=== PATIENT | male | born 1960 | race Caucasian/White ===

== ENCOUNTER 2019-12-07 09:16 | Outpatient (CLI) | payer OTHER, SELFPAY ==
--- NOTE | ~2019-12-07 | XR_ITS ---
EXAMINATION: XR foot RT standing 2V INDICATION: Right foot pain TECHNIQUE: Two views of the right foot are obtained. COMPARISON: None available FINDINGS: No acute fracture is identified. There is moderate osteoarthritis at the first metatarsopha langeal joint. Mild osteoarthritis is noted in multiple interphalangeal joints. IMPRESSION: 1. No acute osseous abnormality on this limited two view examination. Reviewed, dictated and finalized at location A.
== END 2019-12-07 09:17 | disposition home or self-care (01) ==
LOC: CHSIMG 09:18
PROVIDERS: PCP Family Medicine; Visit Provider Family Medicine
DX: S99.919A Unspecified injury of unspecified ankle, initial encounter (principal)
CPT/HCPCS: 73620

== ENCOUNTER 2020-03-27 10:49 | Emergency (ER) | payer OTHER, SELFPAY ==
--- NOTE | ~2020-03-27 | CT_ITS ---
EXAMINATION: CT facial bones w con DATE: 03/27/2020 12:03 INDICATION: Left ear and face swelling TECHNIQUE: Computed tomography (CT) of the facial bones was performed with 100 cc Omnipaque 350 intra venous contrast. The dose-length product was 314.22 mGy-cm. COMPARISON: None FINDINGS: No intracranial abnormality identified. There is mild fatty infiltration of the subcutaneou s tissues of the left temporal/facial and periauricular soft tissues, consistent with cellulitis. No discrete abscess is identified. Mildly prominent left cervical lymph nodes, likely reactive. Small le ft mastoid effusion. Mild mucosal thickening of the left maxillary and ethmoid sinuses. There is mild cervical spondylosis with dextrocurvature of the cervical spine. IMPRESSION: 1. Mild left facial and periauricular subcutaneous fatty infiltration, consistent with cellulitis. No discrete abscess. 2: Small left mastoid effusion. Reviewed, dictated and finalized at location A. TIC SHEETS FINISHING SUPERVISOR IMPRESSION: 1. Mild left facial and periauricular subcutaneous fatty infiltration, consiste nt with cellulitis. No discrete abscess. 2: Small left mastoid effusion.
[2020-03-27 11:21] VITALS: BP 174/109; PULSE 114; RESP 18; TEMP 37.7; O2SAT 98
[2020-03-27 11:35] LABS: Basophils Absolute Auto 0.03 K/mm3 (0.00-0.10); Basophils Percent Auto 0.2 % (0.0-1.0); Eosinophils Absolute Auto 0.02 K/mm3 (0.02-0.50); Eosinophils Percent Auto 0.1 % (1.0-6.0); Hematocrit 45.5 % (40.0-54.0); Hemoglobin 15.2 g/dL (14.0-18.0); Immature Granulocyte Absolute 0.07 K/mm3 (0.00-0.00); Immature Granulocyte Percent A 0.4 % (0.0-0.0); Lymphocytes Absolute Auto 1.19 K/mm3 (1.10-4.50); Lymphocytes Percent Auto 7.5 % (18.0-42.0); Mean Corpuscular HGB Conc 33.4 g/dL (32.0-36.0); Mean Corpuscular Hemoglobin 31.4 pg (27.0-31.0); Mean Platelet Volume 9.6 fl (8.7-11.0); Monocytes Absolute Auto 1.01 K/mm3 (0.10-0.90); Monocytes Percent Auto 6.4 % (2.0-11.0); Neutrophils Absolute Auto 13.5 K/mm3 (1.7-7.2); Neutrophils Percent Auto 85.4 % (50.0-70.0); Platelet Count Result 219 K/mm3 (150-420); Red Blood Count 4.84 M/mm3 (4.70-6.10); Red Cell Distribution Width 12.6 % (11.6-14.4); White Blood Count 15.8 K/mm3 (4.8-10.8)
[2020-03-27] MEDS: KETOROLAC 30 MG/ML VIAL (*BKC) IV PUSH (11:41)
[2020-03-27 11:46] LABS: Anion Gap 11 mmol/L (8-16); Blood Urea Nitrogen 21 mg/dL (7-18); Carbon Dioxide 25 mmol/L (21-32); Chloride 102 mmol/L (98-108); Potassium 4.1 mmol/L (3.5-5.1); Sodium 138 mmol/L (136-145)
[2020-03-27 11:47] LABS: CRP 17.4 mg/dL (0.0-0.9); Estimated CRCL calculation 70 ml/min; Estimated Glomerular Filt Rate > 60; Glucose 109 mg/dL (70-99); Osmolality Calculated 290 mOsm/kg (285-295)
--- NOTE | 2020-03-27 11:53 | ED.EAR ---
HPI - Ear Problem General Chief complaint: Ear Stated complaint: 60YO male w/ 3 month h.o recurrent ear infections (middle and outer) ears. Has been seeing Dr Epstein who has given him multiple rounds of PO ABX. patient was doing ok but on saturday (3 days ago) started having Left ear and face swelling. Patient admits to using ear drops since saturday w/ no improvement. Here for evaluation. Related Data Allergies Allergy/AdvReac Type Severity Reaction Status Date / Time tetracycline Allergy Intermediate Rash Verified 03/08/20 12:05 Review of Systems Review of Systems: All systems reviewed & are unremarkable except as noted in HPI and below Constitutional: Constitutional: Reports no additional constitutional complaints Eyes: Eyes: Reports no additional eye complaints ENT: Reports system reviewed and no additional complaints, except as documented Comments: Left Face and Ear swelling Cardiovascular: Cardiovascular: Reports no additional cardiovascular complaints Respiratory: Respiratory: Reports no additional respiratory complaints Gastrointestinal: Gastrointestinal: Reports no additional gastrointestinal complaints Musculoskeletal: Musculoskeletal: Reports no additional musculoskeletal complaints Integumentary/Breasts: Comments: Left Earlobe and facial Swelling Neurologic: Reports system reviewed and no additional complaints, except as documented Psychiatric: Psychiatric: Reports no additional psychiatric complaints Endocrine: Endocrine: Reports no additional endocrine complaints Hematologic/Lymphatic: Hematologic/Lymphatic: Reports no additional hematologic/lymphatic complaints Allergic/Immunologic: Allergic/Immunologic: Reports no additional allergic/immunologic complaints [facility] Past Medical History Medical History Abnormal vision Anxiety Arthritis COPD (chronic obstructive pulmonary disease) Depression Headache Hypertension Insomnia Nicotine dependence Obesity, Class I, BMI 30-34.9 Osteoarthritis of right patellofemoral joint Otitis externa Stomach pain Urinary frequency Surgical History Surgical History History of back surgery History of knee surgery Left History of right knee surgery 3 past SX datin, 2004, 2004 History of shoulder surgery Family History Family History Mother Acute myocardial infarction Father Hypertension Diabetes mellitus Malignant neoplasm of prostate Other Arthritis Family history of cardiovascular disease Heart disease Social History Social History Smoking packs per day: 1 Smoking cigarettes per day: 20.0 Years smoked: 30 Smoking pack-years: 30.00 Smoking status: Current every day smoker Tobacco type: cigarettes Alcohol intake: current Substance use: never Substance use type: does not use Additional living arrangements comments: 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 Left Auditory canal inspected but TM not visualized sec to earwax. Eyes: Conjunctivae: conjunctivae normal Pupils: Equal, round and reactive pupils present EOM: EOMs intact bilaterally Neck: Neck: normal visual inspection and no lymphadenopathy Chest: Chest palpation & inspection: normal inspection of the chest Resp: Effort & Inspection: no
[2020-03-27 12:10] VITALS: BP 161/96; PULSE 100
[2020-03-27 13:02] LABS: Lactic Acid Reflex 0.8 mmol/L (0.4-2.0)
[2020-03-27 13:30] VITALS: RESP 16; O2SAT 99
== END 2020-03-27 13:39 | disposition home or self-care (01) ==
PROVIDERS: Emergency Provider Family Medicine; PCP Family Medicine
DX: H60.92 Unspecified otitis externa, left ear (principal); L03.211 Cellulitis of face
CPT/HCPCS: 36415; 70487; 80048; 83605; 85025; 86140; 96365; 96375; 99283; 99284; J1885; J2543; Q9965

== ENCOUNTER 2020-04-01 13:27 | Outpatient (CLI) | payer OTHER, SELFPAY ==
--- NOTE | 2020-04-01 13:30 | ECG_ITS ---
Measurements Intervals [place] Rate: 67 P: 119 AL: 123 QRS: 76 QRSD: 86 T: 20 QT: 419 QTc: 443 Interpretive Statements SINUS RHYTHM BORDERLINE ST-T WAVE ABNORMALITY- INFERIOR LEADS BASELINE ARTIFACT- I, II, AVR, AVL, AVF BORDERLINE ECG Electronically Signed On 04-01-2020 13:47:01 WELDING TEACHER by Jaspreet Smyth D.O.
== END 2020-04-01 13:28 | disposition home or self-care (01) ==
LOC: ANHSURGERY 13:30
PROVIDERS: PCP Family Medicine; Visit Provider Surgery
DX: Z01.818 Encounter for other preprocedural examination (principal); I10 Essential (primary) hypertension
CPT/HCPCS: 93005

== ENCOUNTER 2020-04-04 02:24 | Outpatient (CLI) | payer OTHER, SELFPAY ==
[2020-04-04 18:35] LABS: SARS-CoV-2 RNA PCR Negative
== END 2020-04-04 02:25 | disposition home or self-care (01) ==
LOC: ANHCOVIDDT 02:24
PROVIDERS: PCP Family Medicine; Visit Provider Surgery
DX: Z01.812 Encounter for preprocedural laboratory examination (principal); Z20.828 Contact with and (suspected) exposure to other viral communicable diseases
CPT/HCPCS: 87635; C9803; U0003

== ENCOUNTER 2020-04-07 00:39 | Day surgery (SDC) | payer OTHER, SELFPAY ==
[2020-03-31 10:23] VITALS: BMI 28.1
--- NOTE | 2020-04-06 19:28 | PM.SD ---
Same Day Admit/Disch: HPI History of Present Illness Chief complaint: Left Sided HeadacheLeft Temporal Tenderness Narrative: Perez Kothari is a 60 year old male with history of multiple ear infections developed left facial and ear swelling and pain with headache. He went to ED 03/27 and was felt to have cellulitis. His CRP was elevated. 2 days later he saw his PCP who noted tenderness over the left temporal artery with headache and some visual changes. He was started on steroids and is now taken to surgery for left temporal artery biopsy. [facility] Past Medical History Medical History Abnormal vision Anxiety Arthritis COPD (chronic obstructive pulmonary disease) Depression Headache Hypertension Insomnia Nicotine dependence Obesity, Class I, BMI 30-34.9 Osteoarthritis of right patellofemoral joint Otitis externa Stomach pain Urinary frequency Surgical History Surgical History History of back surgery History of knee surgery Left History of right knee surgery 3 past SX datin, 2004, 2004 History of shoulder surgery Family History Family History Mother Acute myocardial infarction Father Hypertension Diabetes mellitus Malignant neoplasm of prostate Other Arthritis Family history of cardiovascular disease Heart disease Social History Social History Smoking packs per day: 1 Smoking cigarettes per day: 20.0 Years smoked: 35 Smoking pack-years: 35.00 Smoking status: Current every day smoker Tobacco type: cigarettes Alcohol intake: current Substance use: never Substance use type: does not use Living arrangements: with family Additional living arrangements comments: 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 [employer] Gender identity (if verbalized by the patient): Male Spiritual care concerns: No Same Day Admit/Disch: Med Pre-admit Medications Home Medications Medication Instructions Recorded Confirmed Type albuterol sulfate 90 mcg/actuation 2 puff INHALATION Q6H PRN #18 gm 11/02/19 04/07/20 Rx aerosol inhaler aspirin 81 mg tablet,delayed 81 mg PO DAILY #90 tablet 11/02/19 04/07/20 Rx release meclizine 25 mg tablet See Rx Instructions .ROUTE 03/04/20 04/07/20 Rx .COMPLEX #30 tablet buspirone 10 mg tablet 10 mg PO BID PRN #60 tablet 03/08/20 04/07/20 Rx fluoxetine 40 mg capsule 40 mg PO DAILY #90 cap 03/08/20 04/07/20 Rx lisinopril 20 1 tablet PO DAILY #90 tablet 03/10/20 04/07/20 Rx mg-hydrochlorothiazide 12.5 mg tablet cefuroxime axetil 500 mg PO Q12H #28 tablet 03/27/20 04/07/20 Rx sulfamethoxazole-trimethoprim 1 tablet PO Q12H #20 tablet 03/27/20 04/07/20 Rx [Bactrim DS] prednisone 50 mg tablet 50 mg PO DAILY #14 tablet 03/29/20 04/07/20 Rx amlodipine 10 mg PO QAM 03/31/20 04/07/20 History budesonide-formoterol [Symbicort] 2 puff INHALATION PRN PRN 03/31/20 04/07/20 History ciprofloxacin-dexamethasone 4 drp LEFTEAR Q12H 03/31/20 04/07/20 History [Ciprodex] gabapentin 300 mg PO PRN PRN 03/31/20 04/07/20 History zolpidem 10 mg tablet 10 mg PO PRN PRN #10 tablet 03/31/20 04/07/20 Rx hydrocodone-acetaminophen 1 - 2 tablet PO Q6H PRN #7 tablet 04/07/20 Rx Exam Const: General: comfortable, no acute distress, alert and awake HENMT: Head: normocephalic and atraumatic Mouth: Yes Normal oral and palatal mucosa present Eyes: Conjunctivae: conjunctivae normal Pupils: Equal, round and reactive pupils present EOM: EOMs intact bilaterally Neck: Neck: normal visual inspection, no lymphadenopathy and nontender Resp: Effort & Inspection: normal respiratory effort Auscultation: clear to auscultation bilaterally Cardio: Rate: regular rate Rhythm: regular rhythm Heart sounds: no gallops, no murmur
--- NOTE | 2020-04-07 08:14 | WPDHPUPDATE1 ---
History and Physical Update Update Date/Time: 04/07/20 08:14 History and Physical has been reviewed, including an updated exam of the patient. There are NO changes in the patient's condition. Risks, benefits, and alternatives have been discussed and questions answered. Patient agrees to proceed with procedure.
[2020-04-07 08:27] VITALS: BP 129/66; PULSE 66; RESP 16; TEMP 36.4; O2SAT 100; BMI 27.1
[2020-04-07] MEDS: LACTATED RINGERS 1,000 ML 30 ML IV CONT ×2 (09:26→11:09)
--- NOTE | 2020-04-07 09:57 | WPDANESEPPF ---
Anes - Initial Pre Proc Eval Procedure: Operation Date: 04/07/20 10:30 Proposed Procedures p Left Temporal Artery Biopsy - Hugo Samuel MD Date/Time: 04/07/20 09:57 Surgeon: Hugo Samuel MD Pre Op Diagnosis: Left Sided HeadacheLeft Temporal Tenderness Patient Data Age: 60 Gender: M Height: 6 ft 1 in Weight: 93.4 kg Last Vital Signs Temp 36.4 C L 04/07/20 08:27 Pulse 66 04/07/20 08:27 Resp 16 04/07/20 08:27 BP 129/66 04/07/20 08:27 Pulse Ox 100 04/07/20 08:27 Allergies Allergy/AdvReac Type Severity Reaction Status Date / Time tetracycline Allergy Intermediate Rash Verified 04/07/20 09:14 Home Medications Medication Instructions Recorded Confirmed Type albuterol sulfate 90 mcg/actuation 2 puff INHALATION Q6H PRN #18 gm 11/02/19 04/07/20 Rx aerosol inhaler aspirin 81 mg tablet,delayed 81 mg PO DAILY #90 tablet 11/02/19 04/07/20 Rx release meclizine 25 mg tablet See Rx Instructions .ROUTE 03/04/20 04/07/20 Rx .COMPLEX #30 tablet buspirone 10 mg tablet 10 mg PO BID PRN #60 tablet 03/08/20 04/07/20 Rx fluoxetine 40 mg capsule 40 mg PO DAILY #90 cap 03/08/20 04/07/20 Rx lisinopril 20 1 tablet PO DAILY #90 tablet 03/10/20 04/07/20 Rx mg-hydrochlorothiazide 12.5 mg tablet cefuroxime axetil 500 mg PO Q12H #28 tablet 03/27/20 04/07/20 Rx sulfamethoxazole-trimethoprim 1 tablet PO Q12H #20 tablet 03/27/20 04/07/20 Rx [Bactrim DS] prednisone 50 mg tablet 50 mg PO DAILY #14 tablet 03/29/20 04/07/20 Rx amlodipine 10 mg PO QAM 03/31/20 04/07/20 History budesonide-formoterol [Symbicort] 2 puff INHALATION PRN PRN 03/31/20 04/07/20 History ciprofloxacin-dexamethasone 4 drp LEFTEAR Q12H 03/31/20 04/07/20 History [Ciprodex] gabapentin 300 mg PO PRN PRN 03/31/20 04/07/20 History zolpidem 10 mg tablet 10 mg PO PRN PRN #10 tablet 03/31/20 04/07/20 Rx Patient hx anesthesia problems: none Family hx anesthesia problems: none PMFSH Past Medical History Medical History Abnormal vision Anxiety Arthritis COPD (chronic obstructive pulmonary disease) Depression Headache Hypertension Insomnia Nicotine dependence Obesity, Class I, BMI 30-34.9 Osteoarthritis of right patellofemoral joint Otitis externa Stomach pain Urinary frequency Surgical History Surgical History History of back surgery History of knee surgery Left History of right knee surgery 3 past SX datin, 2004, 2004 History of shoulder surgery Family History Family History Mother Acute myocardial infarction Father Hypertension Diabetes mellitus Malignant neoplasm of prostate Other Arthritis Family history of cardiovascular disease Heart disease Social History Social History Smoking packs per day: 1 Smoking cigarettes per day: 20.0 Years smoked: 35 Smoking pack-years: 35.00 Smoking status: Current every day smoker Tobacco type: cigarettes Alcohol intake: current Substance use: never Substance use type: does not use Living arrangements: with family Additional living arrangements comments: 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 Question
[2020-04-07] MEDS: ceFAZolin 2 GM/D5W 50 ML 2 GM/50 ML BAG IVPB (10:09)
[2020-04-07] MEDS: BUPIVACAINE/EPINEPHRINE 0.25% 50 ML VIAL 8 ML INFILTRATE (10:29)
[2020-04-07 11:09] VITALS: BP 103/63; PULSE 74; RESP 16
[2020-04-07 11:35] VITALS: BP 137/88; PULSE 61; RESP 16
--- NOTE | 2020-04-07 14:26 | PM.PROC ---
Procedure Note - Detailed Date of procedure: 04/07/20 Pre-op diagnosis: Left Sided HeadacheLeft Temporal Tenderness Left temporal headache Post-op diagnosis: same Procedure performed: Left temporal artery biopsy Description of procedure: The patient was taken to surgery and placed in a supine position with the head turned to the right. Prep and drape was carried out. The proposed incision was marked on the pre-auricular skin. Local anesthetic was infiltrated into the skin and subcutaneous tissues. Incision was made and deepened down into the subcutaneous. Sterile Doppler was then brought into the field so that we could direct our dissection onto the temporal artery. There is a substantial subcutaneous vein associated. This was dissected out and doubly clamped and divided. Each end was ligated with 3 0 Vicryl ties. The temporal artery was then more easily visualized. A 2 cm segment of temporal artery was dissected free from the associated subcutaneous. Each end was clamped and divided. The specimen sent to pathology in formalin. The 2 ends were ligated with 3 0 Vicryl ties. The wound was checked and hemostasis was good. The wound was closed in layers with a deep layer of interrupted 3 0 Vicryl suture. Subcuticular 4 O Vicryl interrupted skin stitches were placed. Finally a running 4 0 Monocryl subcuticular skin closure was placed. The wound was dressed with Exofin surgical adhesive. The patient was awakened and taken to recovery in good condition. Anesthesia: MAC and local (0.25% Marcaine with epinephrine) Surgeon: Hugo Samuel MD Human Resources Operations Director: Evangelina WELDON Estimated blood loss (mL): 50 Drains: No Packing: No Pathology: yes (Left temporal artery) Complications: None Condition: stable Disposition: same day Findings: None significant
== END 2020-04-07 12:07 | disposition home or self-care (01) ==
PROVIDERS: PCP Family Medicine; Visit Provider Surgery
PROC: (CPT 37609; principal; 2020-04-07 10:30)
DX: I77.89 Other specified disorders of arteries and arterioles (principal); R51.9 Headache, unspecified; H53.8 Other visual disturbances; J44.9 Chronic obstructive pulmonary disease, unspecified; F32.9 Major depressive disorder, single episode, unspecified; I10 Essential (primary) hypertension; G47.00 Insomnia, unspecified; M17.11 Unilateral primary osteoarthritis, right knee; H60.90 Unspecified otitis externa, unspecified ear; R35.0 Frequency of micturition; E66.9 Obesity, unspecified; Z68.27 Body mass index [BMI] 27.0-27.9, adult; F17.210 Nicotine dependence, cigarettes, uncomplicated; Z79.82 Long term (current) use of aspirin; Z79.51 Long term (current) use of inhaled steroids
CPT/HCPCS: 37609; 87635; 88305; 88313; 93005; A9270; C9803; J0690; J2250; J2704; J3010; J7120; U0003

== ENCOUNTER 2021-04-03 16:40 | Outpatient (CLI) | payer SELFPAY ==
[2021-04-03 18:15] LABS: SARS-CoV-2 RNA PCR Negative (Negative)
== END 2021-04-03 16:41 | disposition home or self-care (01) ==
LOC: CHSLAB 16:44
PROVIDERS: PCP Family Medicine; Visit Provider Family Medicine
DX: Z20.822 Contact with and (suspected) exposure to COVID-19 (principal)
CPT/HCPCS: C9803; U0003; U0005

== ENCOUNTER 2021-04-10 09:36 | Outpatient (CLI) | payer OTHER, SELFPAY ==
[2021-04-10 10:25] LABS: SARS-CoV-2 RNA PCR Positive (Negative)
== END 2021-04-10 09:37 | disposition home or self-care (01) ==
LOC: CHSLAB 09:39
PROVIDERS: PCP Family Medicine; Visit Provider Family Medicine
DX: U07.1 COVID-19 (principal)
CPT/HCPCS: C9803; U0003; U0005

== ENCOUNTER 2021-06-09 14:24 | Outpatient (CLI) | payer OTHER, SELFPAY ==
--- NOTE | ~2021-06-09 | XR_ITS ---
XR knee RT 3V DATE: 06/09/2021 14:57 INDICATION: Right anterior knee pain following a fall 3 days ago. History of 2 prior surgeries. TECHNIQUE: [place], AP and lateral views of right knee COMPARISON: 05/06/2019 right knee FINDINGS: There are 2 threaded transverse fixation devices at the proximal tibia with evidence of old healed tibial metaphyseal probable fracture deformity. Diffuse osteopenia. There is periarticular spurring of the patella. Medial and lateral compartment joint spaces are relat ively preserved. No recent fracture, dislocation or joint effusion. No periosteal reaction or bone destruction. IMPRESSION: Postoperative change of the tibia, probable old healed tibial metaphyseal fracture Osteopenia Patellofemoral osteoarthritis Reviewed, dictated and finalized at location B. EMIC AFFAIRS DIRECTOR IMPRESSION: Postoperative change of the tibia, probable old healed tibial metap hyseal fracture Osteopenia Patellofemoral osteoarthritis
== END 2021-06-09 14:25 | disposition home or self-care (01) ==
LOC: CHSIMG 14:27
PROVIDERS: PCP Family Medicine; Visit Provider Nurse Practitioner Family
DX: M25.561 Pain in right knee (principal)
CPT/HCPCS: 73562

== ENCOUNTER 2021-06-24 06:43 | Outpatient (CLI) | payer OTHER, SELFPAY ==
--- NOTE | ~2021-06-24 | MR_ITS ---
EXAMINATION: MR knee RT wo con DATE: 06/24/2021 08:38 INDICATION: Right knee pain. TECHNIQUE: Magnetic resonance imaging (MRI) of the right knee was performed without intravenous contr ast. Sequences included axial PD-weighted FS FSE, coronal PD-weighted FSE and PD-weighted FS FSE, sag ittal PD-weighted FSE, and sagittal T2-weighted FS FSE. COMPARISON: Right knee radiographs 06/09/2021 FINDINGS: Medial compartment: Medial meniscus is normal. There is cartilage surface irregularity of tibial condyle and femoral cond yle. Tiny osteophytes are noted. Lateral compartment: There is an undersurface horizontal tear of anterior horn of lateral meniscus. There is cartilage karen face irregularity of tibial condyle and femoral condyle. Patellofemoral compartment: There is deep partial thickness cartilage loss of patellar medial and lateral facets and median ridge . There is partial-thickness cartilage loss of trochlea, deep at medial trochlea. Ligaments and tendons: The anterior and posterior cruciate ligaments are normal. Medial collateral ligament and lateral uday ateral ligament complex are normal. The patellar tendon is normal. Fluid: There is a small knee joint effusion. There is a small Lara's cyst. Osseous/other: There is a 10 mm lesion of increased T2-weighted signal intensity in distal femur, likely an enchondr sadia. There is artifact from screw fragments in tibial metaphysis. IMPRESSION: 1. Moderate chondrosis of patellofemoral compartment and mild chondrosis of medial and lateral compar tments. 2. Tear of lateral meniscus. 3. Small knee joint effusion. 4. Small Lara's cyst. Reviewed, dictated and finalized at location A. AGING MACHINE OPERATOR IMPRESSION: 1. Moderate chondrosis of patellofemoral compartment and mild chondrosis of med ial and lateral compartments. 2. Tear of lateral meniscus. 3. Small knee joint effusion. 4. Small Lara's cyst.
== END 2021-06-24 06:44 | disposition home or self-care (01) ==
LOC: CHSIMG 06:44
PROVIDERS: PCP Family Medicine; Visit Provider Nurse Practitioner Family
DX: M25.561 Pain in right knee (principal)
CPT/HCPCS: 73721

== ENCOUNTER 2021-07-22 07:40 | Outpatient (CLI) | payer OTHER, SELFPAY ==
[2021-07-22 07:53] LABS: Basophils Absolute Auto 0.06 K/mm3 (0.00-0.10); Basophils Percent Auto 0.5 % (0.0-1.0); Eosinophils Absolute Auto 0.22 K/mm3 (0.02-0.50); Eosinophils Percent Auto 1.8 % (1.0-6.0); Hemoglobin 15.6 g/dL (14.0-18.0); Immature Granulocyte Absolute 0.03 K/mm3 (0.00-0.00); Immature Granulocyte Percent A 0.3 % (0.0-0.0); Lymphocytes Absolute Auto 4.12 K/mm3 (1.10-4.50); Lymphocytes Percent Auto 34.4 % (18.0-42.0); Mean Corpuscular HGB Conc 33.2 g/dL (32.0-36.0); Mean Corpuscular Hemoglobin 31.6 pg (27.0-31.0); Mean Corpuscular Volume 95.1 fL (78.0-102.0); Mean Platelet Volume 9.3 fl (8.7-11.0); Monocytes Absolute Auto 0.68 K/mm3 (0.10-0.90); Monocytes Percent Auto 5.7 % (2.0-11.0); Neutrophils Absolute Auto 6.9 K/mm3 (1.7-7.2); Neutrophils Percent Auto 57.3 % (50.0-70.0); Platelet Count Result 257 K/mm3 (150-420); Red Blood Count 4.94 M/mm3 (4.70-6.10); Red Cell Distribution Width 12.7 % (11.6-14.4)
[2021-07-22 08:29] LABS: Alanine Aminotransferase 26 U/L (16-63); Alkaline Phosphatase 62 U/L (46-116); Anion Gap 5 mmol/L (8-16); Aspartate Amino Transferase 18 U/L (15-37); Bilirubin,Total 0.5 mg/dL (0.00-1.00); Blood Urea Nitrogen 17 mg/dL (7-18); Calcium 9.4 mg/dL (8.5-10.1); Carbon Dioxide 31 mmol/L (21-32); Chloride 103 mmol/L (98-108); Cholesterol 238 mg/dL (0-200); Estimated Glomerular Filt Rate > 60; Glucose 92 mg/dL (70-99); HDL Direct 46 mg/dL (40-60); LDL Cholesterol Calculated 175 mg/dL (<130); Osmolality Calculated 289 mOsm/kg (285-295); Potassium 4.4 mmol/L (3.5-5.1); Sodium 139 mmol/L (136-145); Triglycerides 83 mg/dL (0-150)
== END 2021-07-22 07:41 | disposition home or self-care (01) ==
LOC: CHSLAB 07:42
PROVIDERS: PCP Family Medicine; Visit Provider Nurse Practitioner Family
DX: Z01.818 Encounter for other preprocedural examination (principal); I10 Essential (primary) hypertension
CPT/HCPCS: 36415; 80053; 80061; 85025

== ENCOUNTER 2021-08-04 10:21 | Outpatient (CLI) | payer OTHER, SELFPAY ==
--- NOTE | 2021-08-04 10:56 | ECG_ITS ---
Measurements Intervals [place] Rate: 68 P: 69 CO: 139 QRS: 62 QRSD: 98 T: 6 QT: 402 QTc: 429 Interpretive Statements SINUS RHYTHM NONSPECIFIC T-WAVE ABNORMALITY ABNORMAL ECG Electronically Signed On 08-04-2021 15:49:51 CDT by Geraldo Ramirez M.D.
== END 2021-08-04 10:22 | disposition home or self-care (01) ==
LOC: ANHSURGERY 10:25
PROVIDERS: PCP Family Medicine; Visit Provider Orthopaedic Surgery
DX: Z01.810 Encounter for preprocedural cardiovascular examination (principal); S83.289A Other tear of lateral meniscus, current injury, unspecified knee, initial encounter; R94.31 Abnormal electrocardiogram [ECG] [EKG]
CPT/HCPCS: 93005

== ENCOUNTER → 2021-08-05 00:19 | Outpatient (CLI) | payer OTHER, SELFPAY ==
[2021-08-05 11:14] LABS: SARS-CoV-2 RNA PCR Negative
== END ==
PROVIDERS: PCP Family Medicine; Visit Provider Orthopaedic Surgery
DX: Z01.812 Encounter for preprocedural laboratory examination (principal); Z20.822 Contact with and (suspected) exposure to COVID-19
CPT/HCPCS: C9803; U0003; U0005

== ENCOUNTER 2021-08-08 00:10 | Day surgery (SDC) | payer OTHER, SELFPAY ==
--- NOTE | 2021-08-02 14:55 | SUR.PREOP ---
Report to the Outpatient Waiting Room, entrance under the green pavilion located off [facility], at time 1230 on date 08/08/21. OR Time: 1430. - You and your visitor will be asked a series of questions to screen for COVID 19 for your protection. - A mask is required within the hospital. Preoperative COVID Testing Requirements: No COVID Test needed if: (proof is required; if not received patient will have Rapid Test prior to entry) - Patient has received COVID Vaccine at least 14 days prior to procedure date or - Patient has positive COVID test result within last 90 days of surgery date. COVID Test needed if above criteria is not met If not COVID vaccinated a COVID test must be conducted within 72 hours of surgery and patient is asked to isolate self from time of testing until procedure. You will go to the [facility] for your COVID testing. The [facility] is located at the corner of [address] [facility]. You will only be called if COVID results are positive and your surgeon may reschedule your elective surgery date. Patients may have clear liquids (water, carbonated beverages, clear teas, apple juice) until 3 hours prior to surgery with a maximum of 20 ounces. - NO CLEAR LIQUIDS AFTER 1130 - No food from midnight until time of surgery - Infants may have breast milk until 4 hours before surgery, infant formula 6 hours prior to surgery. - Children will be allowed to drink immediately following surgery. If applicable, please bring a bottle or sippy cup to assist with drinking. Juice, water, soda, and popsicles are readily available. For infants on formula, please bring formula the day of surgery. Pacifiers are allowed. Take the following medications with a SIP of water the morning of surgery: CODEINE/ACETAMINOPHEN, CEPHALEXIN, BRING ALBUTEROL INHALER Medications to discontinue per physician ASPIRIN Date to take last dose STOPPED ASPIRIN 07/30/21 Please no make-up, nail chilean, hairspray, perfume, deodorant, or body powder the day of surgery. No jewelry (including any body piercings) or valuables the day of surgery, leave them at home. Please take a shower or bath the night before, or the morning of, surgery with an antibacterial soap. Wear comfortable, loose fitting clothing. Children are encouraged to wear pajamas. - Jewelry must be removed prior to entering the operating room. Rings and piercings that are not removed may be cut off. - The hospital will not accept responsibility for valuables. - Please leave all valuables, including medications, at home the day of surgery. If you are going home after surgery, a licensed taxi truck driver must drive you home. - NO public transportation without another adult. - We recommend that an adult stay with you for 24 hours following discharge. - We also recommend that you do not drive, make important decision, drink alcoholic beverages, or take any drugs that were not prescribed by your health care provider for at least 24 hours after your discharge time. For Pediatric surgeries, we recommend two adults accompany the child home (only one inside the building at this time). One visitor will be allowed to accompany the patient into the hospital. Patients visitor will be instructed to remain with patient at all times or leave the building. We will allow the visitor to come back to the postoperative area when patient is ready. Follow any additional instructions given to you from your surgeon. Telephone instructions given to FRANCISCO GOLDSTEIN and asked if any additional questions and then verbalized understanding. Patient advised to call surgeon office or pre surgery nurse liaison [phone] if any additional questions.
[2021-08-02 15:04] VITALS: BMI 27.5
[2021-08-08] VITALS (8 sets, daily range): BP systolic 101–125; BP diastolic 62–83; PULSE 63–78; RESP 12–16; TEMP 36.2–36.8; O2SAT 94–98
--- NOTE | 2021-08-08 07:12 | WPDHPUPDATE1 ---
History and Physical Update Update Date/Time: 08/08/21 07:12 History and Physical has been reviewed, including an updated exam of the patient. There are NO changes in the patient's condition. Risks, benefits, and alternatives have been discussed and questions answered. Patient agrees to proceed with procedure.
[2021-08-08] MEDS: ACETAMINOPHEN 500 MG TABLET 1000 MG PO (12:23)
[2021-08-08] MEDS: CELECOXIB 200 MG CAPSULE PO (12:24)
[2021-08-08] MEDS: LACTATED RINGERS 1,000 ML 30 ML IV CONT (12:34)
--- NOTE | 2021-08-08 13:22 | WPDANESEPPF ---
Anes - Initial Pre Proc Eval Procedure: Operation Date: 08/08/21 14:30 Proposed Procedures p Right Knee Arthroscopy - Vicenet Gonzalez MD Date/Time: 08/08/21 13:22 Surgeon: Vicente Gonzalez MD Pre Op Diagnosis: right knee lateral meniscus tear Patient Data Age: 61 Gender: M Height: 1.85 m Weight: 90.4 kg Last Vital Signs Temp 36.8 C 08/08/21 12:40 Pulse 74 08/08/21 12:40 Resp 16 08/08/21 12:40 BP 125/83 08/08/21 12:40 Pulse Ox 98 08/08/21 12:40 Allergies Allergy/AdvReac Type Severity Reaction Status Date / Time tetracycline Allergy Intermediate Rash Verified 08/08/21 12:09 Home Medications Medication Instructions Recorded Confirmed Type albuterol sulfate 90 mcg/actuation 2 puff INHALATION Q6H PRN #18 gm 11/02/19 08/02/21 Rx aerosol inhaler aspirin 81 mg tablet,delayed 81 mg PO DAILY #90 tablet 11/02/19 08/02/21 Rx release lisinopril 20 1 tablet PO DAILY #90 tablet 06/05/21 08/08/21 Rx mg-hydrochlorothiazide 12.5 mg tablet acetaminophen 300 mg-codeine 30 mg 1 tablet PO Q6H PRN #20 tablet 06/30/21 08/02/21 Rx tablet lovastatin 20 mg tablet 20 mg PO QPM #90 tablet 07/24/21 08/08/21 Rx ciprofloxacin 0.3 %-dexamethasone 4 drp OTIC (EAR) Q12H 7 Days #7.5 07/27/21 08/08/21 Rx 0.1 % ear drops,suspension ml chlorhexidine gluconate 4 % 1 applic TOPICAL ONCE #237 ml 08/01/21 08/02/21 Rx topical liquid tobramycin 1 drp OPHTHALMIC (EYE) Q4H PRN 08/02/21 08/08/21 History Patient hx anesthesia problems: none Family hx anesthesia problems: none Results Review: All pre-operative results and documents have been reviewed as part of the pre-operative evaluation. [facility] Past Medical History Medical History Abnormal vision Anxiety Arthritis COPD (chronic obstructive pulmonary disease) Depression Headache Hypertension Insomnia Nicotine dependence Obesity, Class I, BMI 30-34.9 Osteoarthritis of right patellofemoral joint Otitis externa Stomach pain Urinary frequency Surgical History Surgical History History of back surgery History of knee surgery Left History of right knee surgery 3 past SX datin, 2004, 2004 History of shoulder surgery Family History Family History Mother Acute myocardial infarction Asthma Hypertension Father Hypertension Diabetes mellitus Malignant neoplasm of prostate Heart disease Cerebrovascular accident Cancer Other Arthritis Family history of cardiovascular disease Social History Social History (Updated 07/28/21 @ 09:04 by Jonelle Brunner MA) Smoking packs per day: 1 Smoking cigarettes per day: 20.0 Years smoked: 35 Smoking pack-years: 35.00 Smoking status: Current every day smoker Tobacco type: cigarettes Alcohol use details: social Substance use: never Living arrangements: with family 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 [employer] Gender identity (if verbalized by the patient): Male Spiritual care concerns: No Anes - Eval Final PreProcedure Day of Procedure 08/08/21 13:22 Patient weight: overweight Heart: regular rate and rhythm Lungs: clear to auscultation and normal air movement Airway: Mallampati scale class II Neurological: alert and oriented Last oral intake: >/= 8 hours ASA classification: III Emergent: no Anesthetic plan: proceed Anesthesia type and monitoring: general LMA Results Review: All pre-operative results and documents have been reviewed as part of the pre-operative evaluation. Informed Consent: The patient's anesthetic plan and its attendant risks and benefits were discussed with the patient/family/POA. Questions were solicited and answers provided to the satisfaction of the patient/family/POA.
[2021-08-08] MEDS: ceFAZolin 2 GM/D5W 50 ML 2 GM/50 ML BAG IVPB (14:27)
[2021-08-08] MEDS: BUPIVACAINE HCL 0.5% PF 30 ML VIAL INFILTRATE (14:53)
[2021-08-08] MEDS: methylPREDNISolone ACETATE 80 MG/ML VIAL IM (15:12)
--- NOTE | 2021-08-08 15:35 | P.OP_ITS ---
Procedure Note - Detailed Date of Procedure 08/08/21 Pre-op Diagnosis right knee lateral meniscus tear Post-op Diagnosis Same Procedure Performed RIGHT KNEE SCOPE Surgeon Vicente Gonzalez MD Anesthesia General Description of Procedure PATIENT WAS TAKEN TO THE OR. THE RIGHT LEG WAS PREPPED AND DRAPED STERILE. TRO CARS WERE PLACED IN THE KNEE JOINT IN THE USUAL FASHION. CAMERA WAS INTRODUCED. THERE WAS CHONDROMALACIA TO THE PATELLA FEMORAL JOINT. THERE WAS A LOT OF SYNOVITIS IN ALL COMPARTMENTS. THE MEDIAL COMPARTMENT SHOWED CHONDROMALACIA TO THE MEDIAL FEMORAL CONDYLE. A SHAVER WAS USED TO PREFORM A CHONDROPLASTY. THERE WAS A SMALL COMPLEX MEDIAL MENISCUS TEAR. THE TEAR WAS RESECTED WITH A BITER AND A SHAVER DOWN TO A SMOOTH BASE. A SMALL PORTION OF THE MENISCUS WAS REMOVED. THE ACL WAS INTACT. THERE WAS GOOD STABILITY. THERE WAS NO LAXITY WITH ANTERIOR DRAWER TEST. THE LATERAL MENISCUS WAS TORN AT THE ANTERIOR HORN, AND THE MIDSUBSTANCE. THE TEAR WAS RESECTED. THE LATERAL COMPARTMENT HAD GRADE 2 CHONDROMALACIA AT THE LATERAL PLATEAU. CHONDROPLASTY WAS PREFORMED. A SYNOVECTOMY WAS PREFORMED WELL. THE PATELLO FEMORAL JOINT UNDERWENT CHONDROPLASTY. THERE WAS GRADE 3 CHONDROMALACIA AND FULL THICKNESS CARTILAGE LOSS IN MOST OF THE TROCHLEA AND PART OF THE PATELLA. SYNOVECTOMY WAS PREFORMED IN THE SUPERIOR MEDIAL COMPARTMENT. THE WOUNDS WERE APPROXIMATED WITH 4.0 NYLON. STERILE DRESSING WAS APPLIED. PATIENT WAS EXTUBATED. Estimated Blood Loss 5 Complications No immediate complications Condition Stable Disposition PACU
[2021-08-08] MEDS: fentaNYL CITRATE INJ (*CRX) 100 MCG/2 ML VIAL 25 MCG IV PUSH ×4 (16:00→16:07)
== END 2021-08-08 17:05 | disposition home or self-care (01) ==
PROVIDERS: PCP Family Medicine; Visit Provider Orthopaedic Surgery
PROC: (CPT 29870; principal; 2021-08-08 14:30)
DX: S83.281A Other tear of lateral meniscus, current injury, right knee, initial encounter (principal); S83.231A Complex tear of medial meniscus, current injury, right knee, initial encounter; M94.261 Chondromalacia, right knee; M65.861 Other synovitis and tenosynovitis, right lower leg; W19.XXXA Unspecified fall, initial encounter; Z79.51 Long term (current) use of inhaled steroids; Z79.82 Long term (current) use of aspirin; J44.9 Chronic obstructive pulmonary disease, unspecified; I10 Essential (primary) hypertension; F41.8 Other specified anxiety disorders; F17.210 Nicotine dependence, cigarettes, uncomplicated
CPT/HCPCS: 29880; 93005; A9270; C9803; J0690; J1040; J2250; J3010; J7120; U0003; U0005

== ENCOUNTER 2022-01-11 10:17 | Outpatient (CLI) | payer OTHER, SELFPAY ==
[2022-01-11 10:35] LABS: Hematocrit 42.1 % (40.0-54.0); Hemoglobin 14.1 g/dL (14.0-18.0); Mean Corpuscular HGB Conc 33.5 g/dL (32.0-36.0); Mean Corpuscular Hemoglobin 32.3 pg (27.0-31.0); Mean Corpuscular Volume 96.3 fL (78.0-102.0); Mean Platelet Volume 9.6 fl (8.7-11.0); Platelet Count Result 230 K/mm3 (150-420); Red Blood Count 4.37 M/mm3 (4.70-6.10); Red Cell Distribution Width 12.7 % (11.6-14.4); White Blood Count 10.4 K/mm3 (4.8-10.8)
[2022-01-11 10:37] LABS: Add Urine Microscopic? YES; Appearance Urine Clear (Clear); Bilirubin Urine Negative (Negative); Blood Urine 1+ (Negative); Color Urine Yellow (Yellow); Glucose Urine UA Negative (Negative); Ketones Urine Negative (Negative); Leukocyte Esterase Ur Negative (Negative); Nitrate Urine Negative (Negative); Protein Urine Negative (Negative); Specific Grav Ur >= 1.030 (1.010-1.020); Urobilinogen Urine 0.2 mg/dL (0.2-1.0)
[2022-01-11 10:52] LABS: Bacteria Urine Trace /hpf; Mucus Urine Few /lpf; RBC Urine 0-2 /hpf (0-2); WBC Urine None seen /hpf (0-3)
[2022-01-11 11:09] LABS: Alanine Aminotransferase 18 U/L (16-63); Albumin Level 3.7 g/dL (3.4-5.0); Alkaline Phosphatase 59 U/L (46-116); Anion Gap 7 mmol/L (8-16); Aspartate Amino Transferase 14 U/L (15-37); Bilirubin,Total 0.4 mg/dL (0.00-1.00); Blood Urea Nitrogen 14 mg/dL (7-18); CRP < 0.5 mg/dL (0.0-0.9); Calcium 8.8 mg/dL (8.5-10.1); Carbon Dioxide 30 mmol/L (21-32); Chloride 106 mmol/L (98-108); Estimated Glomerular Filt Rate > 60; Glucose 103 mg/dL (70-99); Lipase 89 U/L (73-393); Osmolality Calculated 296 mOsm/kg (285-295); Potassium 3.5 mmol/L (3.5-5.1); Prostate Specific Antigen 2.2 ng/mL (< OR = 4.0); Sodium 143 mmol/L (136-145); Total Protein 6.7 g/dL (6.4-8.2)
== END 2022-01-11 10:18 | disposition home or self-care (01) ==
LOC: CHSLAB 10:19
PROVIDERS: PCP Family Medicine; Visit Provider Family Medicine
DX: R10.9 Unspecified abdominal pain (principal); R35.1 Nocturia
CPT/HCPCS: 36415; 80053; 81001; 83690; 84153; 85027; 86140; G0103

== ENCOUNTER 2022-01-15 13:14 | Outpatient (CLI) | payer OTHER, SELFPAY ==
[2022-01-15 13:19] LABS: Occult Blood Negative (Negative)
[2022-01-19 18:26] LABS: Lactoferrin, Stool Negative (Negative)
[2022-01-21 17:33] LABS: Calprotectin, Stool 28 mcg/g
== END 2022-01-15 13:15 | disposition home or self-care (01) ==
LOC: CHSLAB 13:15
PROVIDERS: PCP Family Medicine; Visit Provider Family Medicine
DX: R19.7 Diarrhea, unspecified (principal)
CPT/HCPCS: 82272; 83630; 83993

== ENCOUNTER 2022-01-31 06:42 | Day surgery (SDC) | payer OTHER, SELFPAY ==
[2022-01-16 14:43] VITALS: BMI 26.2
[2022-01-24 07:53] VITALS: BMI 25.0
[2022-01-31 06:55] VITALS: BP 134/93; PULSE 92; RESP 16; TEMP 36.6; O2SAT 100
[2022-01-31] MEDS: LACTATED RINGERS 1,000 ML 150 ML IV CONT (07:07)
--- NOTE | 2022-01-31 07:38 | WPDANESEPPF ---
Anes - Initial Pre Proc Eval Procedure: Operation Date: 01/31/22 08:30 Proposed Procedures p Diagnostic Colonoscopy - Mick Garcia DO Date/Time: 01/31/22 07:38 Surgeon: Mick Garcia DO Pre Op Diagnosis: Melena Patient Data Age: 61 Gender: M Height: 1.85 m Weight: 86.7 kg Allergies Allergy/AdvReac Type Severity Reaction Status Date / Time tetracycline Allergy Intermediate Rash Verified 01/31/22 07:12 Home Medications Medication Instructions Recorded Confirmed Type albuterol sulfate 90 mcg/actuation 2 puff inhalation Q6H PRN 11/02/19 01/31/22 Rx aerosol inhaler (Proventil HFA) shortness of breath or wheezing #18 grams aspirin 81 mg tablet,delayed 81 mg PO DAILY #90 tabs 11/02/19 01/31/22 Rx release (Adult Aspirin Regimen) acetaminophen 300 mg-codeine 30 mg 1 tablet PO Q6H PRN pain #20 tabs 06/30/21 01/31/22 Rx tablet tobramycin 0.3 % eye drops 1 drp ophthalmic (eye) Q4H PRN 08/02/21 01/31/22 History IRRITATION lisinopril 20 1 tablet PO DAILY #90 tabs 01/08/22 01/31/22 Rx mg-hydrochlorothiazide 12.5 mg tablet lovastatin 20 mg tablet 20 mg PO QPM #90 tabs 01/08/22 01/31/22 Rx Patient hx anesthesia problems: none Family hx anesthesia problems: none Results Review: All pre-operative results and documents have been reviewed as part of the pre-operative evaluation. [facility] Past Medical History Medical History Abnormal vision Anxiety Arthritis COPD (chronic obstructive pulmonary disease) Depression Headache Hypertension Insomnia Nicotine dependence Obesity, Class I, BMI 30-34.9 Osteoarthritis of right patellofemoral joint Otitis externa Stomach pain Urinary frequency Surgical History Surgical History History of back surgery History of knee surgery Left History of right knee surgery 3 past SX datin (), 2003 (Carolee), 2004 History of shoulder surgery History of surgery R Leg, 2003, Carolee Family History Family History Mother Acute myocardial infarction Asthma Hypertension Father Hypertension Diabetes mellitus Malignant neoplasm of prostate Heart disease Cerebrovascular accident Cancer Other Arthritis Family history of cardiovascular disease Family history of stroke Social History Social History Smoking packs per day: 0.5 Smoking cigarettes per day: 10.0 Years smoked: 30 Smoking pack-years: 15.00 Smoking status: Current every day smoker Tobacco type: cigarettes Alcohol intake: current Substance use: never Substance use type: does not use Living arrangements: with family 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[employer] Gender identity (if verbalized by the patient): Male Spiritual care concerns: No Anes - Eval Final PreProcedure Day of Procedure 01/31/22 07:38 Patient weight: normal Heart: regular rate and rhythm Lungs: decreased breath sounds Airway: Mallampati scale class III Neurological: alert and oriented Last oral intake: >/= 8 hours ASA classification: III Emergent: no Anesthetic plan: proceed Anesthesia type and monitoring: general GIVS and standard monitoring Results Review: All pre-operative results and documents have been reviewed as part of the pre-operative evaluation. Informed Consent: The patient's anesthetic plan and its attendant risks and benefits were discussed with the patient/family/POA. Questions were solicited and answers provided to the satisfaction of the patient/family/POA.
--- NOTE | 2022-01-31 08:21 | PM.IMHP ---
H&P: HPI History of Present Illness Date/Time: 01/31/22 08:21 Chief Complaint: diarrhea, abdominal pain Narrative: 61 yo man presents for colonoscopy. Last done 10 years ago. Denies hematochezia. No fam hx colon cancer. he has been having abdominal pain and diarrhea. Review of Systems Review of Systems: All systems reviewed & are unremarkable except as noted in HPI and below Constitutional: Constitutional: Denies chills, Denies fever(s), Denies headache(s) and Denies weight loss Eyes: Eyes: Denies change in vision ENT: Denies dizziness, Denies headache(s), Denies neck mass and Denies throat swelling Cardiovascular: Cardiovascular: Denies chest pain, Denies lightheadedness and Denies dyspnea Respiratory: Respiratory: Denies cough, Denies dyspnea and Denies wheezing Gastrointestinal: Gastrointestinal: Denies abdominal pain, Denies change in bowel habits, Denies nausea and Denies vomiting Genitourinary: Genitourinary: Denies hematuria and Denies dysuria Musculoskeletal: Musculoskeletal: Reports as per HPI Integumentary/Breasts: Skin/Breast: Reports as per HPI Neurologic: Denies dizziness and Denies headache(s) Allergic/Immunologic: Allergic/Immunologic: Denies throat swelling and Denies wheezing PMFSH Past Medical History Medical History Abnormal vision Anxiety Arthritis COPD (chronic obstructive pulmonary disease) Depression Headache Hypertension Insomnia Nicotine dependence Obesity, Class I, BMI 30-34.9 Osteoarthritis of right patellofemoral joint Otitis externa Stomach pain Urinary frequency Surgical History Surgical History History of back surgery History of knee surgery Left History of right knee surgery 3 past SX datin (), 2003 (Carolee), 2004 History of shoulder surgery History of surgery R Leg, 2003, Family History Family History Mother Acute myocardial infarction Asthma Hypertension Father Hypertension Diabetes mellitus Malignant neoplasm of prostate Heart disease Cerebrovascular accident Cancer Other Arthritis Family history of cardiovascular disease Family history of stroke Social History Social History Smoking packs per day: 0.5 Smoking cigarettes per day: 10.0 Years smoked: 30 Smoking pack-years: 15.00 Smoking status: Current every day smoker Tobacco type: cigarettes Alcohol intake: current Substance use: never Substance use type: does not use Living arrangements: with family 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[employer] Gender identity (if verbalized by the patient): Male Spiritual care concerns: No Meds Home Medications and Allergies Home Medications Medication Instructions Recorded Confirmed Type albuterol sulfate 90 mcg/actuation 2 puff inhalation Q6H PRN 11/02/19 01/31/22 Rx aerosol inhaler (Proventil HFA) shortness of breath or wheezing #18 grams aspirin 81 mg tablet,delayed 81 mg PO DAILY #90 tabs 11/02/19 01/31/22 Rx release (Adult Aspirin Regimen) acetaminophen 300 mg-codeine 30 mg 1 tablet PO Q6H PRN pain #20 tabs 06/30/21 01/31/22 Rx tablet tobramycin 0.3 % eye drops 1 drp ophthalmic (eye) Q4H PRN 08/02/21 01/31/22 History IRRITATION lisinopril 20 1 tablet PO DAILY #90 tabs 01/08/22 01/31/22 Rx mg-hydrochlorothiazide 12.5 mg tablet lovastatin 20 mg tablet 20 mg PO QPM #90 tabs 01/08/22 01/31/22 Rx Allergies Allergy/AdvReac Type Severity Reaction Status Date / Time tetracycline Allergy Intermediate Rash Verified 01/31/22 07:12 Vital Signs Vital Signs - 24 hr 01/31/22 06:55 Temperature 36.6 C Pulse Rate 92 Respiratory Rate 16 Blood Pressure 134/93 H Pulse Oximetry 100 Oxygen Hectorive
[2022-01-31 08:39] VITALS: BP 96/63; PULSE 70; RESP 15; O2SAT 97
[2022-01-31 08:49] VITALS: BP 94/74; PULSE 79; RESP 15; O2SAT 97
--- NOTE | 2022-01-31 08:50 | WPDANESPN ---
Anes - Prog Note Post-Op Date/Time: 01/31/22 08:50 Cardiovascular status: normal Respiratory status: normal Airway patency: baseline Mental status: baseline Post-Op hydration status: normal Vital Signs: Last Vital Signs Temp 36.6 C 01/31/22 06:55 Pulse 70 01/31/22 08:39 Resp 15 01/31/22 08:39 BP 96/63 L 01/31/22 08:39 Pulse Ox 97 01/31/22 08:39 O2 Del Method Room Air 01/31/22 08:39 Pain Score (VAS): 0 I/O: Intake & Output 01/30/22 01/31/22 01/31/22 23:59 07:59 15:59 Intake Total 700 Balance 700 Patient Feedback: Patient satisfied with anesthetic care.
[2022-01-31 08:59] VITALS: BP 125/80; PULSE 74; RESP 14; O2SAT 100
== END 2022-01-31 09:13 | disposition home or self-care (01) ==
PROVIDERS: PCP Family Medicine; Visit Provider Surgery
PROC: 0DJD8ZZ Inspection of Lower Intestinal Tract, Via Natural or Artificial Opening Endoscopic (ICD-10-PCS; CPT 45378; principal; 2022-01-31 08:30)
DX: R19.7 Diarrhea, unspecified (principal)
CPT/HCPCS: 45378

== ENCOUNTER 2022-02-22 01:19 | Emergency (ER) | payer OTHER, SELFPAY ==
[2022-02-22] VITALS (21 sets, daily range): BP systolic 132–180; BP diastolic 65–101; PULSE 58–72; RESP 0–25; TEMP 36.3–36.7; O2SAT 95–100
--- NOTE | ~2022-02-22 | XR_ITS ---
EXAMINATION: XR chest 2V DATE: 02/22/2022 02:10 INDICATION: Chest pressure. TECHNIQUE: Frontal and lateral views of the chest were obtained. COMPARISON: Chest single view 04/28/2017 FINDINGS: The chest demonstrates clear lungs without pneumonia, pleural effusion, or pneumothorax. Th e heart size is normal. There is an old healed fracture of left clavicle. IMPRESSION: 1. No acute cardiopulmonary disease. Reviewed, dictated and finalized at location A.
--- NOTE | 2022-02-22 01:27 | ECG_ITS ---
Measurements Intervals [place] Rate: 70 P: 73 NM: 150 QRS: 69 QRSD: 89 T: 41 QT: 433 QTc: 468 Interpretive Statements SINUS RHYTHM WITH MARKED SINUS ARRHYTHMIA NORMAL ECG COMPARED TO ECG 08/04/2021 11:03:37 SINUS ARRHYTHMIA NOW PRESENT Electronically Signed On 02-22-2022 6:39:28 CDT by Jaspreet Smyth D.O.
--- NOTE | 2022-02-22 01:28 | ED.CHESTPAIN ---
HPI - Chest Pain General Chief Complaint: Chest Pain Stated Complaint: CHEST PAIN Time Seen by Provider: 02/22/22 01:25 Source: patient and RN notes reviewed Mode of arrival: ambulatory Limitations: no limitations History of Present Illness complaint: chest heaviness Onset (ago): day(s) (1.5) Timing of current episode: constant Prior episodes: No Onset: during rest Pain location: left chest Pain radiation: left arm Pain scale (0-10): 7 Quality: heaviness Relieving factors: rest Exacerbating factors: nothing Associated symptoms: dyspnea Treatment prior to arrival: aspirin (81 mg) Risk Factors Coronary artery disease risk factors: smoking history, hyperlipidemia and hypertension Thoracic aortic dissection risk factors: none Related Data Allergies Allergy/AdvReac Type Severity Reaction Status Date / Time tetracycline Allergy Intermediate Rash Verified 02/22/22 01:34 Review of Systems Review of Systems: All systems reviewed & are unremarkable except as noted in HPI and below Cardiovascular: Cardiovascular: Reports as per HPI and Denies diaphoresis Respiratory: Respiratory: Reports as per HPI Gastrointestinal: Gastrointestinal: Denies nausea and Denies vomiting PMFSH Past Medical History Medical History Abnormal vision Anxiety Arthritis COPD (chronic obstructive pulmonary disease) Depression Headache Hypertension Insomnia Nicotine dependence Obesity, Class I, BMI 30-34.9 Osteoarthritis of right patellofemoral joint Otitis externa Stomach pain Urinary frequency Surgical History Surgical History History of back surgery History of knee surgery Left History of right knee surgery 3 past SX datin (), 2003 (Carolee), 2004 History of shoulder surgery History of surgery R Leg, 2003, [place]olee Family History Family History Mother Acute myocardial infarction Asthma Hypertension Father Hypertension Diabetes mellitus Malignant neoplasm of prostate Heart disease Cerebrovascular accident Cancer Other Arthritis Family history of cardiovascular disease Family history of stroke Social History Social History Smoking packs per day: 0.5 Smoking cigarettes per day: 10.0 Years smoked: 30 Smoking pack-years: 15.00 Smoking status: Current every day smoker Tobacco type: cigarettes Alcohol intake: current Substance use: never Substance use type: does not use 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[employer] Gender identity (if verbalized by the patient): Male Spiritual care concerns: No Exam Const: General: cooperative, healthy appearing, comfortable, no acute distress, well developed, well nourished and overweight Orientation/consciousness: patient oriented x3 Limitations: no limitations HENMT: Head: normal to inspection, normocephalic and atraumatic Ears: hearing grossly normal bilaterally and external ears normal Face/Nose/Sinus: Normal external nose present Face and sinus: normal facial exam Eyes: General: appearance normal, both eyes and all related structures Pupils: Equal, round and reactive pupils present EOM: EOMs intact bilaterally Neck: Neck: normal visual inspection, full ROM, trachea midline and supple Chest: Chest palpation & inspection: localized rib tenderness with anteroposterior compression Resp: Effort & Inspection: normal respiratory effort and able to speak in complete sentences Auscultation: clear to auscultation bilaterally Cardio: Jugular venous distension: no JVD Rate: regular rate Rhythm: regular rhythm GI: Inspection: normal to inspection Auscultation: normal bowel sounds Back/Spine/Pelvis: Cervical Spine: cervical ROM normal Thoracic/Lumbar Spine: thoraco-lumbar ROM normal Skin:
[2022-02-22] MEDS: ASPIRIN 81 MG CHEWABLE TABLET 243 MG PO (01:47)
[2022-02-22] MEDS: NITROGLYCERIN SL 0.4 MG TABLET SUBLINGUAL ×3 (01:48→01:58)
--- NOTE | 2022-02-22 01:49 | PC.NURSE ---
PT IS LYING ON STRETCHER IN EXAM ROOM WITH AT BEDSIDE. NAD NOTED. PT DECLINES BLANKET, REQUESTS ICE CHIPS, TO BE PROVIDED. WILL CONTINUE TO MONITOR. PT IS AWAITING LAB RESULTS.
[2022-02-22 01:50] LABS: Basophils Absolute Auto 0.06 K/mm3 (0.00-0.10); Basophils Percent Auto 0.4 % (0.0-1.0); Eosinophils Percent Auto 1.2 % (1.0-6.0); Immature Granulocyte Absolute 0.07 K/mm3 (0.00-0.00); Immature Granulocyte Percent A 0.4 % (0.0-0.0); Lymphocytes Percent Auto 27.9 % (18.0-42.0); Mean Corpuscular HGB Conc 34.9 g/dL (32.0-36.0); Mean Corpuscular Hemoglobin 32.7 pg (27.0-31.0); Mean Corpuscular Volume 93.7 fL (78.0-102.0); Mean Platelet Volume 9.8 fl (8.7-11.0); Monocytes Absolute Auto 0.99 K/mm3 (0.10-0.90); Neutrophils Absolute Auto 10.5 K/mm3 (1.7-7.2); Neutrophils Percent Auto 64.1 % (50.0-70.0); Platelet Count Result 231 K/mm3 (150-420); Red Blood Count 4.59 M/mm3 (4.70-6.10); Red Cell Distribution Width 12.8 % (11.6-14.4); White Blood Count 16.5 K/mm3 (4.8-10.8)
--- NOTE | 2022-02-22 01:54 | PC.NURSE ---
NO CHANGE WITH PAIN POST 1ST NITRO. PT IS LYING ON STRETCHER WITH EYES CLOSED. NAD NOTED. WILL CONTINUE TO MONITOR.
[2022-02-22 02:06] LABS: D Dimer 0.19 mg/L (0.19-0.50); Prothrombin Time 10.9 Seconds (9.50-12.10)
--- NOTE | 2022-02-22 02:07 | PC.NURSE ---
PT HAS RETURNED FROM RADIOLOGY. NO CHANGE IN STATUS POST NITRO. NAD NOTED. WILL CONTINUE TO MONITOR.
[2022-02-22 02:08] LABS: Alanine Aminotransferase 22 U/L (16-63); Albumin Level 4.2 g/dL (3.4-5.0); Alkaline Phosphatase 65 U/L (46-116); Anion Gap 10 mmol/L (8-16); Aspartate Amino Transferase 17 U/L (15-37); Bilirubin,Total 0.3 mg/dL (0.00-1.00); Blood Urea Nitrogen 21 mg/dL (7-18); Calcium 9.3 mg/dL (8.5-10.1); Carbon Dioxide 25 mmol/L (21-32); Chloride 105 mmol/L (98-108); Estimated CRCL calculation 62 ml/min; Estimated Glomerular Filt Rate 57; Glucose 90 mg/dL (70-99); Osmolality Calculated 293 mOsm/kg (285-295); Potassium 3.5 mmol/L (3.5-5.1); Sodium 140 mmol/L (136-145); Total Protein 7.4 g/dL (6.4-8.2); Troponin I 6.5 ng/L (0.00-60.4)
[2022-02-22] MEDS: methylPREDNISolone SOD SUCC 125 MG VIAL IV PUSH (02:31)
--- NOTE | 2022-02-22 02:32 | PC.NURSE ---
PER DR AUGUST, CXR WAS SENT TO HAVE RADIOLOGY READ. PT IS RESTING ON STRETCHER WITH AT BEDSIDE. VSS PER MONITOR. NAD NOTED. PT DENIES ANY NEEDS OR COMPLAINTS. WILL CONTINUE TO MONITOR.
--- NOTE | 2022-02-22 02:53 | PC.NURSE ---
PT USING BEDSIDE URINAL AT THIS TIME. PT IS AWAITING RAD RESULTS. NAD NOTED. WILL CONTINUE TO MONITOR.
== END 2022-02-22 03:20 | disposition home or self-care (01) ==
PROVIDERS: Emergency Provider Emergency Medicine; PCP Family Medicine
DX: J44.9 Chronic obstructive pulmonary disease, unspecified (principal); F17.200 Nicotine dependence, unspecified, uncomplicated
CPT/HCPCS: 36415; 71046; 80053; 84484; 85025; 85380; 85610; 93005; 96374; 99284; A9270; J2930

== ENCOUNTER 2022-05-07 13:19 | Outpatient (CLI) | payer BC, SELFPAY ==
--- NOTE | ~2022-05-07 | XR_ITS ---
XR wrist RT 2V DATE: 05/07/2022 14:37 INDICATION: Diffuse right wrist pain for a few months, worsening recently TECHNIQUE: AP and lateral views COMPARISON: None FINDINGS: There is osteoarthritis at the first carpometacarpal joint. No fracture, dislocation, periosteal reaction or bone destruction or chondrocalcinosis. No erosive ch chriss is noted. IMPRESSION: Osteoarthritis at first carpometacarpal joint Reviewed, dictated and finalized at location B. [employer]ING VE[employer]LE IN[employer]ANTRY[employer]
== END 2022-05-07 13:20 | disposition home or self-care (01) ==
LOC: CHSIMG 13:24
PROVIDERS: PCP Family Medicine; Visit Provider Nurse Practitioner Family
DX: M25.531 Pain in right wrist (principal); M19.031 Primary osteoarthritis, right wrist
CPT/HCPCS: 73100

== ENCOUNTER 2022-07-17 08:18 | Outpatient (CLI) | payer BC, SELFPAY ==
--- NOTE | 2022-07-17 09:45 | NEURO_ITS ---
Impression: Patient reports a history of right wrist and arm pain. # Evidence of mild, bilateral ulnar neuropathy with slowing across the elbows. # Normal needle/EMG exam. # Clinical correlation recommended. Motor Nerve Conduction Upper Extremities Median Nerve Conduction Velocity (m/sec) Terminal Latency (msec) Response Voltage(mV) Elbow-Wrist Wrist Elbow Wrist Right 52 3.3 6 7 Left 50 3.1 6 6 Ulnar Nerve Conduction Velocity (m/sec) Terminal Latency (msec) Response Voltage(mV) Above Elbow Below Elbow Wrist Above Elbow Below Elbow Wrist Right 47 52 3.1 6 6 7 Left 45 51 2.8 6 6 8 F-Wave Latency Median (ms) Ulnar (ms) Right 28.5 26.9 Left 28.5 27.3 Sensory Nerve Conduction Upper Extremities Median Nerve Stimulation Terminal Latency (msec) Wrist/Digit Response Voltage (uV) Wrist Right 3.2/3.3 20/16 Left 3.3/3.5 34/14 Ulnar Nerve Stimulation Terminal Latency (msec) Wrist/Digit Response Voltage (uV) Wrist Right 2.9 31 Left 2.8 17 Radial Nerve Terminal Latency (msec) Response Voltage(mV) Right 2.7 26 Left 2.4 14 Left Right Muscles Examined Fibrillation Fasciculation Scarcity Voltage Duration Left Right Left Right Left Right Left Right Left Right Deltoid Biceps X X Brachioradialis Triceps X X Pronator Teres X X Ext Indicis X X Ext Digitorum X X Abd Poll Brev X X 1st Dorsal Interosseus Paraspinals MTDD
== END 2022-07-17 08:19 | disposition home or self-care (01) ==
LOC: ANHNEURO 08:21
PROVIDERS: PCP Family Medicine; Visit Provider Family Medicine
DX: G56.23 Lesion of ulnar nerve, bilateral upper limbs (principal)
CPT/HCPCS: 95886; 95911

== ENCOUNTER 2022-08-08 07:44 | Outpatient (RCR) | payer BC, SELFPAY ==
--- NOTE | 2022-08-08 11:53 | PTOPEVAL1 ---
Assessment and note entered by Mayuri Gupta, PT Evaluation Information Assessment Status Evaluation Diagnosis R wrist/thumb pain Onset 05/23/22 Subjective Information Perez reports he started having pain on the side of his right wrist near the thumb in May 2022 for unknown reasons. He states pain slowly spread across the wrist, up the forearm, and down the thumb. He denies an injury, change in activity, or MVA prior to the onset of pain. He notes he does do a lot of lifting for work. He is having worse pain when using the right arm to lift, pull, carry , drive a manual vehicle, and perform daily activities like bathing and grooming. He has less pain with heat, ice, rest, and use of OTC ibuprofen. He saw his PCP who performed an x-ray of his right wrist that was negative. He states his doctor did not think it was carpal tunnel syndrome. He also had an onset of central, lower neck pain that started about 3 weeks ago. He is left hand dominant. Reported Pain Level Pain Score 7: Self Report Assessment PT Clinical Summary Perez Kothari presents with signs and symptoms consistent with DeQuervain's tenosynovitis on the right wrist/thumb as well as cervicalgia. He has right lateral wrist/thumb pain that increases with lifting, gripping, and carrying. He has difficulty with daily activities of bathing/ grooming, driving, and working at [employer]. 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 He will benefit from skilled PT to address these limitations. Plan of Care Interventions Electrical Stimulation,Hot Pack/Cold Pack,Manual Therapy,Patient/Caregiver Educati,Therapeutic Activities,Therapeutic Exercise,Ultrasound PT Services Indicated Yes Treatment Frequency and 3 times a week for 12 visits Duration These treatments will address the objective and functional deficits as defined above. The patient will be advanced safely and appropriately in order for the patient to progress towards his/her prior level of function. Additional exercises will be introduced and as well as a comprehensive home exercise program upon discharg
== END 2022-08-23 09:59 | disposition home or self-care (01) ==
LOC: CHSPT 07:44
PROVIDERS: PCP Family Medicine; Visit Provider Family Medicine
DX: G56.20 Lesion of ulnar nerve, unspecified upper limb (principal)
CPT/HCPCS: 97035; 97110; 97161

== ENCOUNTER 2022-08-21 12:58 | Outpatient (CLI) | payer BC, SELFPAY ==
--- NOTE | ~2022-08-21 | US_ITS ---
EXAMINATION: US carotid duplex BI DATE: 08/21/2022 13:25 INDICATION: Vertigo, dizziness and giddiness TECHNIQUE: Grayscale, color Doppler, and pulsed Doppler images of the cervical carotid arteries were obtained. The degree of vessel stenosis is placed in one of the following categories: normal, <50%, 5 0-69%, >=70% but less than near-occlusion, near-occlusion, or total occlusion. Note that percent sten osis relative to normal distal artery lumen diameter is indirectly measured from velocity measurement s as described by Shawn, et al. Radiology 2003; [id number]:[id number]. COMPARISON: None. FINDINGS: RIGHT: The right common carotid artery (CCA) peak systolic velocity (PSV) is 126 cm/s. The right internal ca rotid artery (ICA) PSV is 66 cm/s. The right ICA end-diastolic velocity (EDV) is 27 cm/s. The right I CA/CCA PSV ratio is 0.5. Grayscale and color Doppler images yield an estimate of <50% diameter reduct ion from plaque in the ICA. The external carotid artery (ECA) PSV is 138 cm/s. There is antegrade janki w in the right vertebral artery. LEFT: The left CCA PSV is 420 cm/s. The left ICA PSV is 88 cm/s. The left ICA EDV is 32 cm/s. The left ICA/ CCA PSV ratio is 0.7. Grayscale and color Doppler images yield an estimate of <50% diameter reduction from plaque in the ICA. The ECA PSV is 84 cm/s. There is antegrade flow in the left vertebral artery . IMPRESSION: 1. <50% stenosis in the right internal carotid artery. 2. <50% stenosis in the left internal carotid artery. Reviewed, dictated and finalized at location L.
== END 2022-08-21 12:59 | disposition home or self-care (01) ==
LOC: CHSIMG 13:00
PROVIDERS: PCP Family Medicine; Visit Provider Family Medicine
DX: R42 Dizziness and giddiness (principal); I65.23 Occlusion and stenosis of bilateral carotid arteries
CPT/HCPCS: 93880

== ENCOUNTER 2022-08-23 17:02 | Outpatient (CLI) | payer BC, SELFPAY ==
[2022-08-23 18:20] LABS: Alanine Aminotransferase 16 U/L (16-63); Alkaline Phosphatase 59 U/L (46-116); Anion Gap 9 mmol/L (8-16); Aspartate Amino Transferase 20 U/L (15-37); Bilirubin,Total 0.2 mg/dL (0.00-1.00); Blood Urea Nitrogen 19 mg/dL (7-18); Carbon Dioxide 29 mmol/L (21-32); Chloride 103 mmol/L (98-108); Estimated Glomerular Filt Rate > 60; Glucose 90 mg/dL (70-99); Osmolality Calculated 294 mOsm/kg (285-295); Potassium 4.2 mmol/L (3.5-5.1); Sodium 141 mmol/L (136-145); Total Protein 7.4 g/dL (6.4-8.2)
== END 2022-08-23 17:03 | disposition home or self-care (01) ==
LOC: CHSLAB 17:04
PROVIDERS: PCP Family Medicine; Visit Provider Family Medicine
DX: I10 Essential (primary) hypertension (principal)
CPT/HCPCS: 36415; 80053

== ENCOUNTER 2022-09-04 08:48 | Outpatient (CLI) | payer BC, SELFPAY | END 2022-09-04 08:49 | disposition home or self-care (01) | PROVIDERS: PCP Family Medicine; Visit Provider Otolaryngology | DX: H90.3 Sensorineural hearing loss, bilateral (principal) | CPT/HCPCS: 92557; 92567 ==

== ENCOUNTER 2023-08-13 09:05 | Outpatient (CLI) | payer OTHER, SELFPAY ==
[2023-08-13 09:38] LABS: Basophils Absolute Auto 0.04 K/mm3 (0.00-0.10); Basophils Percent Auto 0.4 % (0.0-1.0); Eosinophils Absolute Auto 0.18 K/mm3 (0.02-0.50); Eosinophils Percent Auto 1.8 % (1.0-6.0); Hemoglobin 14.4 g/dL (14.0-18.0); Immature Granulocyte Absolute 0.03 K/mm3 (0.00-0.00); Immature Granulocyte Percent A 0.3 % (0.0-0.0); Lymphocytes Absolute Auto 2.45 K/mm3 (1.10-4.50); Lymphocytes Percent Auto 25.2 % (18.0-42.0); Mean Corpuscular HGB Conc 32.7 g/dL (32-36); Mean Corpuscular Hemoglobin 30.9 pg (27.0-31.0); Mean Corpuscular Volume 94.4 fL (78.0-102.0); Mean Platelet Volume 9.5 fl (8.7-11.0); Monocytes Absolute Auto 0.57 K/mm3 (0.10-0.90); Monocytes Percent Auto 5.9 % (2.0-11.0); Neutrophils Absolute Auto 6.46 K/mm3 (1.70-7.20); Neutrophils Percent Auto 66.4 % (50.0-70.0); Platelet Count Result 234 K/mm3 (150-420); Red Blood Count 4.66 M/mm3 (4.70-6.10); Red Cell Distribution Width 12.8 % (11.6-14.4); White Blood Count 9.7 K/mm3 (4.8-10.8)
[2023-08-13 10:34] LABS: Alanine Aminotransferase 20 U/L (16-63); Albumin Level 3.7 g/dL (3.4-5.0); Alkaline Phosphatase 61 U/L (46-116); Anion Gap 11 mmol/L (4-12); Aspartate Amino Transferase 19 U/L (15-37); Bilirubin,Total 0.4 mg/dL (0.00-1.00); Blood Urea Nitrogen 20 mg/dL (7-18); CRP 0.7 mg/dL (0.0-0.9); Calcium 9.1 mg/dL (8.5-10.1); Carbon Dioxide 28 mmol/L (21-32); Chloride 105 mmol/L (98-108); Cholesterol 199 mg/dL (0-200); Estimated Glomerular Filt Rate > 60; Folic Acid 14.1 ng/mL (8.6->20); Glucose 101 mg/dL (70-99); HDL Direct 48 mg/dL (40-60); LDL Cholesterol Calculated 141 mg/dL (<130); Osmolality Calculated 300 mOsm/kg (285-295); Potassium 4.3 mmol/L (3.5-5.1); Prostate Specific Antigen 2.3 ng/mL (< OR = 4.0); Sodium 144 mmol/L (136-145); Total Protein 6.6 g/dL (6.4-8.2); Triglycerides 49 mg/dL (0-150); Vitamin B12 444 pg/mL (193-986)
[2023-08-13 10:55] LABS: Thyroid Stimulating Hormone Reflex 1.03 u/IU/mL (0.36-3.74)
[2023-08-13 12:36] LABS: Occult Blood Negative (Negative)
[2023-08-19 16:38] LABS: Calprotectin, Stool 47 mcg/g
[2023-08-20 14:08] LABS: Pancreatic Elastase, Stool 382 mcg/g
== END 2023-08-13 09:06 | disposition home or self-care (01) ==
PROVIDERS: PCP Family Medicine; Visit Provider Family Medicine
DX: R35.1 Nocturia (principal); E53.8 Deficiency of other specified B group vitamins; E78.5 Hyperlipidemia, unspecified; E03.9 Hypothyroidism, unspecified; K52.9 Noninfective gastroenteritis and colitis, unspecified
CPT/HCPCS: 36415; 80053; 80061; 82272; 82607; 82653; 82746; 83993; 84153; 84443; 85025; 86140; 87045; 87177; 87209; 87427; 87449; G0103

== ENCOUNTER 2023-08-14 08:51 | Emergency (ER) | payer OTHER, SELFPAY ==
[2023-08-14] VITALS (9 sets, daily range): BP systolic 156–188; BP diastolic 96–114; PULSE 64–88; RESP 11–18; TEMP 35.8; O2SAT 96–100
--- NOTE | ~2023-08-14 | XR_ITS ---
EXAMINATION: XR chest 1V portable DATE: 08/14/2023 09:44 INDICATION: Chest pain TECHNIQUE: frontal view of the chest was obtained. COMPARISON: Chest radiograph dated 02/22/22 FINDINGS: The lungs are clear with no focal airspace opacities, pulmonary edema, pleural effusion or pneumothor ax. The cardiomediastinal silhouette is normal. Mild upper thoracic levocurvature with mild spondylos is. IMPRESSION: 1. No acute cardiopulmonary disease. Reviewed, dictated and finalized at location A.
--- NOTE | 2023-08-14 09:15 | PC.NURSE ---
Daughter at the bedside. No acute distress noted.
--- NOTE | 2023-08-14 09:31 | ECG_ITS ---
SEE SCANNED COPY FOR CONFIRMED REPORT MTDD
--- NOTE | 2023-08-14 09:31 | ED.CHESTPAIN ---
HPI - Chest Pain General Chief Complaint: Chest Pain Stated Complaint: Chest pain Source: patient Mode of arrival: ambulatory Limitations: no limitations History of Present Illness HPI narrative: 63-year-old male, smoker with a history of hypertension, anxiety/depression, arthritis, COPD, dyslipidemia, GERD, chronic diarrhea, pineal gland cyst presented to his primary care physician for high blood pressures. She subsequently while attempting to go for work he developed -- lightheadedness -- chest pain. chest pain was located in the substernal region with radiation to the back. -- shortness of breath MD complaint: chest pain Onset (ago): day(s) ( 3 hours) Timing of current episode: constant Prior episodes: No Onset: during rest Pain location: substernal Pain radiation: back Severity: mild Pain scale (0-10): 3 Quality: tightness Relieving factors: nothing Exacerbating factors: nothing Associated symptoms: nausea and other ( chronic diarrhea) Treatment prior to arrival: none Risk Factors Coronary artery disease risk factors: smoking history Related Data Allergies Allergy/AdvReac Type Severity Reaction Status Date / Time tetracycline Allergy Intermediate Rash Verified 08/14/23 09:26 Review of Systems Review of Systems: All systems reviewed & are unremarkable except as noted in HPI and below Constitutional: Constitutional: Reports as per HPI and Reports no additional constitutional complaints Eyes: Eyes: Reports as per HPI and Reports no additional eye complaints ENT: Reports system reviewed and no additional complaints, except as documented and Reports as per HPI Cardiovascular: Cardiovascular: Reports as per HPI, Reports no additional cardiovascular complaints and Reports chest pain Respiratory: Respiratory: Reports as per HPI, Reports no additional respiratory complaints and Reports dyspnea Gastrointestinal: Gastrointestinal: Reports as per HPI and Reports no additional gastrointestinal complaints Musculoskeletal: Musculoskeletal: Reports back pain Integumentary/Breasts: Skin/Breast: Reports system reviewed and no additional complaints, except as docu and Reports as per HPI Neurologic: Reports system reviewed and no additional complaints, except as documented and Reports as per HPI Psychiatric: Psychiatric: Reports no additional psychiatric complaints, Reports as per HPI and Reports anxiety Endocrine: Endocrine: Reports no additional endocrine complaints and Reports as per HPI Hematologic/Lymphatic: Hematologic/Lymphatic: Reports no additional hematologic/lymphatic complaints and Reports as per HPI Allergic/Immunologic: Allergic/Immunologic: Reports no additional allergic/immunologic complaints and Reports as per HPI [facility] Past Medical History Medical History Abnormal vision Anxiety Arthritis COPD (chronic obstructive pulmonary disease) Depression Headache Hypertension Insomnia Nicotine dependence Obesity, Class I, BMI 30-34.9 Osteoarthritis of right patellofemoral joint Otitis externa Stomach pain Urinary frequency Surgical History Surgical History History of back surgery History of knee surgery Left History of right knee surgery 3 past SX datin (), 2003 (Carolee), 2004 History of shoulder surgery History of surgery R Leg, 2003, [facility] Family History Family History Mother Acute myocardial infarction Asthma Hypertension Father Hypertension Diabetes mellitus Malignant neoplasm of prostate Heart disease Cerebrovascular accident Cancer Other Arthritis Family history of cardiovascular disease Family history of stroke Social History Social History Smoking packs per day: 0.5 Smoking cigarettes per day: 10.0 Years smoked: 30
[2023-08-14] MEDS: ASPIRIN 81 MG CHEWABLE TABLET 324 MG PO (09:49)
[2023-08-14 09:54] LABS: Basophils Absolute Auto 0.04 K/mm3 (0.00-0.10); Basophils Percent Auto 0.5 % (0.0-1.0); Eosinophils Absolute Auto 0.19 K/mm3 (0.02-0.50); Eosinophils Percent Auto 2.2 % (1.0-6.0); Hematocrit 44.7 % (40.0-54.0); Hemoglobin 14.7 g/dL (14.0-18.0); Immature Granulocyte Absolute 0.04 K/mm3 (0.00-0.00); Immature Granulocyte Percent A 0.5 % (0.0-0.0); Lymphocytes Absolute Auto 2.23 K/mm3 (1.10-4.50); Lymphocytes Percent Auto 26.3 % (18.0-42.0); Mean Corpuscular HGB Conc 32.9 g/dL (32-36); Mean Corpuscular Volume 94.3 fL (78.0-102.0); Mean Platelet Volume 9.3 fl (8.7-11.0); Monocytes Absolute Auto 0.48 K/mm3 (0.10-0.90); Monocytes Percent Auto 5.7 % (2.0-11.0); Neutrophils Percent Auto 64.8 % (50.0-70.0); Platelet Count Result 239 K/mm3 (150-420); Red Blood Count 4.74 M/mm3 (4.70-6.10); Red Cell Distribution Width 12.8 % (11.6-14.4); White Blood Count 8.5 K/mm3 (4.8-10.8)
--- NOTE | 2023-08-14 10:00 | PC.NURSE ---
at the beside. patient talking with staff and family. no distress noted. awaiting test results
[2023-08-14 10:14] LABS: D Dimer 0.21 mg/L (0.19-0.50); Lactic Acid Reflex 1.1 mmol/L (0.4-2.0); Partial Thromboplastin Time 29.3 Sec (23.9-30.70); Prothrombin Time 10.8 Seconds (9.50-12.1)
[2023-08-14 10:15] LABS: Alanine Aminotransferase 18 U/L (16-63); Albumin Level 3.6 g/dL (3.4-5.0); Alkaline Phosphatase 59 U/L (46-116); Anion Gap 8 mmol/L (4-12); Aspartate Amino Transferase 18 U/L (15-37); Bilirubin,Total 0.4 mg/dL (0.00-1.00); Blood Urea Nitrogen 16 mg/dL (7-18); Calcium 8.7 mg/dL (8.5-10.1); Carbon Dioxide 31 mmol/L (21-32); Chloride 104 mmol/L (98-108); Estimated CRCL calculation 71 ml/min; Estimated Glomerular Filt Rate > 60; Glucose 99 mg/dL (70-99); NT Pro B Type Natriuretic Pept 169 pg/mL (0-125); Osmolality Calculated 297 mOsm/kg (285-295); Potassium 4.4 mmol/L (3.5-5.1); Sodium 143 mmol/L (136-145); Total Protein 6.8 g/dL (6.4-8.2); Troponin I 8.6 ng/L (0.00-60.4)
== END 2023-08-14 10:54 | disposition home or self-care (01) ==
PROVIDERS: Emergency Provider Internal Medicine Critical Care Medicine; PCP Family Medicine
DX: R07.89 Other chest pain (principal); I16.0 Hypertensive urgency; F41.9 Anxiety disorder, unspecified; R06.02 Shortness of breath; I10 Essential (primary) hypertension; E78.5 Hyperlipidemia, unspecified; J44.9 Chronic obstructive pulmonary disease, unspecified; F32.A Depression, unspecified; R19.7 Diarrhea, unspecified; F17.210 Nicotine dependence, cigarettes, uncomplicated; Z79.51 Long term (current) use of inhaled steroids; Z79.82 Long term (current) use of aspirin
CPT/HCPCS: 36415; 71045; 80053; 83605; 83880; 84484; 85025; 85380; 85610; 85730; 93005; 99284; A9270

== ENCOUNTER 2023-08-16 10:21 | Outpatient (CLI) | payer OTHER, SELFPAY ==
--- NOTE | ~2023-08-16 | CT_ITS ---
CT Scan of the Chest without Contrast: Clinical Indication: Lung cancer screening, smoking history Technique: Contiguous sections were acquired throughout the chest without intravenous contrast. Dose reduction technique was used on this scan by utilizing automated exposure control and iterative recon struction technique. The dose-length product (DLP) was 126.31 mGy-cm. Findings: There is no evidence of any significant mediastinal, hilar or axillary lymphadenopathy. Coronary darling ry calcifications are present. There is no evidence of pleural or pericardial effusion. . 5 mm left basilar pulmonary nodule present (axial image 96). Images through the upper abdomen reveal calcified gallstone. Impression: Lung RADS 2: Benign appearance. 12 month follow-up screening CT advised. Reviewed, dictated and finalized at location . Impression: Lung RADS 2: Benign appearance. 12 month follow-up screening CT advised.
== END 2023-08-16 10:22 | disposition home or self-care (01) ==
LOC: CHSIMG 10:24
PROVIDERS: PCP Family Medicine; Visit Provider Family Medicine
DX: Z12.2 Encounter for screening for malignant neoplasm of respiratory organs (principal); Z87.891 Personal history of nicotine dependence
CPT/HCPCS: 71271

== ENCOUNTER 2023-10-08 00:22 | Day surgery (SDC) | payer OTHER, SELFPAY ==
[2023-10-02 12:19] VITALS: BMI 25.2
[2023-10-08 06:11] VITALS: BP 136/83; PULSE 69; RESP 18; TEMP 35.9; O2SAT 97; BMI 24.8
[2023-10-08] MEDS: LACTATED RINGERS 1,000 ML 150 ML IV CONT (06:33)
--- NOTE | 2023-10-08 06:57 | WPDANESEPPF ---
Anes - Initial Pre Proc Eval Procedure: Operation Date: 10/08/23 07:30 Proposed Procedures p Esophagogastroduodenoscopy & Colonoscopy - Fransico Michel MD Date/Time: 10/08/23 06:57 Surgeon: Fransico Michel MD Pre Op Diagnosis: Abnormal Wt. Loss, Abdominal pain, GERD Patient Data Age: 63 Gender: M Height: 1.85 m Weight: 85.5 kg Last Vital Signs Temp 35.9 C L 10/08/23 06:11 Pulse 69 10/08/23 06:11 Resp 18 10/08/23 06:11 BP 136/83 10/08/23 06:11 Pulse Ox 97 10/08/23 06:11 O2 Del Method Room Air 10/08/23 06:11 Allergies Allergy/AdvReac Type Severity Reaction Status Date / Time tetracycline Allergy Intermediate Hives Verified 10/08/23 06:18 Home Medications Medication Instructions Recorded Confirmed Type albuterol sulfate 90 mcg/actuation 2 puff inhalation Q6H PRN 11/02/19 10/08/23 Rx aerosol inhaler (Proventil HFA) shortness of breath or wheezing #18 grams aspirin 81 mg tablet,delayed 81 mg PO DAILY #90 tabs 11/02/19 10/08/23 Rx release (Adult Aspirin Regimen) budesonide 160 mcg-glycopyr 9 2 inh inhalation BID #10.7 grams 03/23/22 10/08/23 Rx mcg-formot 4.8 mcg/actuation HFA inhaler (Breztri Aerosphere) lisinopril 20 See Rx Instructions .Route 08/13/23 10/08/23 Rx mg-hydrochlorothiazide 12.5 mg .COMPLEX #90 tabs tablet quetiapine 50 mg tablet See Rx Instructions .Route 08/13/23 10/08/23 Rx .COMPLEX #90 tabs amlodipine 10 mg tablet 10 mg PO DAILY #90 tabs 08/14/23 10/08/23 Rx metoprolol succinate 25 mg 12.5 mg PO DAILY #90 tabs 08/14/23 10/08/23 Rx tablet,extended release 24 hr cholestyramine (with sugar) 4 gram 4 g PO BID #348.6 grams 09/12/23 10/08/23 Rx oral powder (Questran) ascorbic acid (vitamin C) 500 mg 500 mg PO DAILY 10/02/23 10/08/23 History tablet cholecalciferol (vitamin D3) 50 50 mcg PO DAILY 10/02/23 10/08/23 History mcg (2,000 unit) tablet (Vitamin D3) fluoxetine 20 mg tablet 20 mg PO DAILY 10/02/23 10/08/23 History magnesium 500 mg tablet 500 mg PO DAILY 10/02/23 10/08/23 History zinc sulfate 220 mg capsule 220 mg PO DAILY 10/02/23 10/08/23 History Patient hx anesthesia problems: none Family hx anesthesia problems: none Results Review: All pre-operative results and documents have been reviewed as part of the pre-operative evaluation. [facility] Past Medical History Medical History Abnormal vision Anxiety Arthritis COPD (chronic obstructive pulmonary disease) Depression Headache Hypertension Insomnia Nicotine dependence Obesity, Class I, BMI 30-34.9 Osteoarthritis of right patellofemoral joint Otitis externa Stomach pain Urinary frequency Surgical History Surgical History History of back surgery History of knee surgery Left History of right knee surgery 3 past SX datin (), 2003 (Carolee), 2004 History of shoulder surgery History of surgery R Leg, 2003, [place] Family History Family History Mother Acute myocardial infarction Asthma Hypertension Father Hypertension Diabetes mellitus Malignant neoplasm of prostate Heart disease Cerebrovascular accident Cancer Other Arthritis Family history of cardiovascular disease Family history of stroke Social History Social History Smoking packs per day: 0.5 Smoking cigarettes per day: 10.0 Years smoked: 40 Smoking pack-years: 20.00 Smoking status: Current every day smoker Tobacco type: cigarettes Alcohol intake: current Substance use: never Substance use type: does not use Lack of Transportation: No Lack of Food: Never True Current Housing: I Have Housing Concerned About Future Housing: No Difficulty Paying Gas/Electric Bills: No Difficulty Paying for Me
--- NOTE | 2023-10-08 07:22 | WPDHPUPDATE1 ---
History and Physical Update Update Date/Time: 10/08/23 07:22 History and Physical has been reviewed, including an updated exam of the patient. There are NO changes in the patient's condition. Risks, benefits, and alternatives have been discussed and questions answered. Patient agrees to proceed with procedure.
[2023-10-08] MEDS: BENZOCAINE (*SP) 60 ML SPRAY CAN (HURRICAINE) 1 SPRAY MUCOUS MEM (07:30)
--- NOTE | 2023-10-08 07:41 | SUR.OPER ---
EGD ended at 736, colon began at 740
[2023-10-08 07:54] VITALS: BP 106/71; PULSE 57; RESP 15; O2SAT 99
[2023-10-08 08:04] VITALS: BP 115/71; PULSE 62; RESP 16; O2SAT 99
[2023-10-08 08:14] VITALS: BP 129/81; PULSE 55; RESP 20; O2SAT 98
== END 2023-10-08 08:26 | disposition home or self-care (01) ==
PROVIDERS: PCP Family Medicine; Referring Provider Nurse Practitioner Family; Visit Provider Internal Medicine Gastroenterology
PROC: 0DJ08ZZ Inspection of Upper Intestinal Tract, Via Natural or Artificial Opening Endoscopic (ICD-10-PCS; CPT 43235; principal; 2023-10-08 07:30)
DX: K29.80 Duodenitis without bleeding (principal); K57.30 Diverticulosis of large intestine without perforation or abscess without bleeding; K64.8 Other hemorrhoids; K21.9 Gastro-esophageal reflux disease without esophagitis; J44.9 Chronic obstructive pulmonary disease, unspecified; I10 Essential (primary) hypertension; F41.9 Anxiety disorder, unspecified; F32.A Depression, unspecified; F17.210 Nicotine dependence, cigarettes, uncomplicated; Z79.51 Long term (current) use of inhaled steroids; Z79.82 Long term (current) use of aspirin
CPT/HCPCS: 45380; 43239; 88305; J2704; J7120

== ENCOUNTER 2024-01-16 15:31 | Outpatient (CLI) | payer OTHER, SELFPAY ==
--- NOTE | ~2024-01-16 | XR_ITS ---
EXAM: XR lumbar spine 2-3V DATE: 01/16/2024 15:49 HISTORY: LBP CHRONIC,H/O SURGERY X7YR AGO-L4-5 . COMPARISON: None available. FINDINGS: Mild scoliosis. Calcification of the right upper quadrant may represent bowel content or ch olelithiasis. 5 nonrib-bearing lumbar-type vertebral bodies. Pedicles intact. Normal vertebral body a lignment. Mild loss of vertebral body height at L3 and L4. Severe disc space narrowing and vacuum phe nomenon at L3-4. Mild disc space narrowing at L2-3. Moderate mid and lower lumbar facet versus and hy pertrophy. No fracture or dislocation. Aortic calcifications without evident aneurysm. Posterior deco mpression at L3. IMPRESSION: Multilevel degenerative disc disease, severe at L3-4. Moderate mid and lower lumbar facet arthropathy. Mild compression deformities at L3 and L4, presumably chronic. Reviewed, dictated and finalized at location K.
== END 2024-01-16 15:32 | disposition home or self-care (01) ==
LOC: CHSIMG 15:34
PROVIDERS: PCP Family Medicine; Visit Provider Family Medicine
DX: M54.16 Radiculopathy, lumbar region (principal); M51.36 Other intervertebral disc degeneration, lumbar region; M12.88 Other specific arthropathies, not elsewhere classified, other specified site
CPT/HCPCS: 72100

== ENCOUNTER 2024-02-06 09:49 | Outpatient (CLI) | payer OTHER, SELFPAY ==
--- NOTE | ~2024-02-06 | MR_ITS ---
MRI of the lumbar spine Clinical History: Radiculopathy Technique: Axial T2-weighted images, and sagittal T1-weighted, T2-weighted, and T2 fat-sat images wer e acquired. Findings: There is no fracture or sublocation lumbar spine. Vertebral bodies maintain normal height a nd line. There are prominent type I Modic changes about the L3-L4 disc space. No suspicious bone aldair ow signal abnormality seen. At L1-L2, there is no disc bulge or herniation. There is mild to moderate facet hypertrophy. No centr al canal stenosis or neural foraminal narrowing. At L2-L3, there is mild disc bulge with advanced facet arthropathy. There is minimal central canal st enosis. Neural foramina are preserved. At L3-L4, there is moderate degenerative disc narrowing. There is diffuse disc bulge and severe facet arthropathy, with moderate central canal stenosis. There is right lateral recess stenosis. There is severe right neural foraminal compromise, and mild to moderate left neural foraminal compromise. At L4-L5, there is mild disc bulge with moderate facet arthropathy. There is mild central canal steno sis. There is mild left neural foraminal narrowing. Right neural foramen preserved. At L5-S1, there is no disc bulge or herniation. There is moderate facet hypertrophy. No central canal stenosis or neural foraminal narrowing. Paravertebral soft tissues are unremarkable. Impression: Advanced degenerative spondylosis at L3-L4, as detailed above. Mild degenerative changes in the remainder of the lumbar spine. Reviewed, dictated and finalized at [facility]. Impression: Advanced degenerative spondylosis at L3-L4, as detailed above. Mild degenerative changes in the remainder of the lumbar spine.
== END 2024-02-06 09:50 | disposition home or self-care (01) ==
PROVIDERS: PCP Family Medicine; Visit Provider Family Medicine
DX: M54.16 Radiculopathy, lumbar region (principal); M43.06 Spondylolysis, lumbar region
CPT/HCPCS: 72148

== ENCOUNTER 2024-05-27 16:55 | Outpatient (RCR) | payer OTHER, SELFPAY ==
--- NOTE | 2024-05-27 17:36 | OPREHPOC ---
Outpatient Therapy Plan of Care This is a Multidisciplinary Plan of Care that may contain components documented by all disciplines (PT, OT, and ST.) PT Problem 1 PT Problem #1 Knowledge Deficit PT Goal 1 Goal / Goal Update 1. independent and compliant with HEP Target Visit 6 PT Problem 2 PT Problem #2 Pain PT Goal 1 Goal / Goal Update 1. decrease pain at worst to 5/10 or less in the lower back Target Visit 12 PT Problem 3 PT Problem #3 Impaired Range of Motion PT Goal 1 Goal / Goal Update 1. improve active lumbar flexion to ankles 2. improve active lumbar extension to 30 degrees 3. improve active lumbar side bending to 30 degrees Target Visit 12 PT Problem 4 PT Problem #4 Impaired Strength PT Goal 1 Goal / Goal Update 1. patient to display 4/5 or better core strength 2. improve bilateral hip strength to 5/5 overall Target Visit 12 PT Problem 5 PT Problem #5 Impaired Functional Mobility PT Goal 1 Goal / Goal Update 1. oswestry to display 30% or less functional deficits 2. patient to squat and lift 40lbs from floor to waist safely without increased pain or symptoms 3. patient to stand for 2 hours without increased symptoms Target Visit 12
--- NOTE | 2024-05-27 17:36 | PTOPEVAL1 ---
Assessment and note entered by JT File, PT Evaluation Information Assessment Status Evaluation ICD-10 Condition Codes (PT) Pain in low back M54.50 Onset 05/05/24 Subjective Information patient reports he has had pain in the lower back since 2014. he reports his pain has been slowly creeping back since the surgery, but reports it has really gotten worse over the past few years and now since last month. he reports he has pain all the time. he reports it is worse with bending, lifting, carrying activities. 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 he reports his requires him to remain physically active throughout the day. he reports laying down on his back relieves some of his pain. he reports he has NTB in both legs that goes down to the knees. Reported Pain Level Pain Score 7: Self Report Assessment PT Clinical Summary mr. lamb is a 64 yo man who presents to skilled PT services for evaluation and treatment of lower back pain. he presents with pain, weakness of the core and hips, decreased rom, and difficulty with standing/lifting/bending functional tasks. his signs and symptoms are consistent with lumbar spinal stenosis and DDD. continued skilled PT is indicated to improve his objective/functional deficits and improve his functional activity performance/quality of life. Plan of Care Interventions Electrical Stimulation,Gait Training,Hot Pack/Cold Pack,Manual Therapy,Mechanical Traction,Neuro Re- education,Patient/Caregiver Education,Therapeutic Activities,Therapeutic Exercise PT Services Indicated Yes Treatment Frequency and 2x weekly for 12 visits Duration These treatments will address the objective and functional deficits as defined above. The patient will be advanced safely and appropriately in order for the patient to progress towards his/her prior level of function. Additional exercises will be introduced and as well as a comprehensive home exercise program upon discharge, if needed, ?to ensure carryover of functional gains achieved in the clinic. This treatment plan has been reviewed and agreement upon by the patient.
--- NOTE | 2024-06-05 17:19 | PCPTNOTE ---
Patient called & cancelled scheduled appointment this date due to illness.
== END 2024-06-26 20:00 | disposition home or self-care (01) ==
LOC: CHSPT 16:55
PROVIDERS: PCP Neurological Surgery; Visit Provider Nurse Practitioner Adult Health
DX: M48.061 Spinal stenosis, lumbar region without neurogenic claudication (principal); M54.50 Low back pain, unspecified; M54.16 Radiculopathy, lumbar region
CPT/HCPCS: 97014; 97110; 97112; 97140; 97161; 97530; G0283

== ENCOUNTER 2024-10-22 06:55 | Outpatient (CLI) | payer OTHER, SELFPAY ==
--- NOTE | ~2024-10-22 | CT_ITS ---
Noncontrast CT scan of the lumbar spine CLINICAL HISTORY: Spinal stenosis TECHNIQUE: Axial noncontrast imaging of the lumbar spine was performed. Sagittal and coronal reformat deysi images were constructed. Dose reduction technique was used on this scan by utilizing automated ex posure control and iterative reconstruction technique. The dose-length product (DLP) was 884.52 mGy-c m. FINDINGS: There is no fracture or subluxation of the lumbar spine. Vertebral bodies maintain normal h eight pneumonia. At L1-L2, there is no disc bulge or herniation. There is moderate facet hypertrophy. No spinal canal stenosis. There is probable mild right neural foraminal narrowing. Left neural foramen preserved. At L2-L3, there is mild diffuse disc bulge with moderate facet arthropathy. There is moderate to adva nced spinal canal stenosis/thecal sac compression. There is moderate to severe bilateral neural brittny inal narrowing. At L3-L4, there is severe degenerative disc narrowing. There is diffuse disc bulge with moderate to a dvanced facet arthropathy. There is mild to moderate central canal stenosis/thecal sac compression. T here is severe right neural foraminal comprise. There is moderate to severe left neural foraminal con ference. At L4-L5, there is diffuse disc bulge with mild facet arthropathy. There is mild central canal stenos is. There is moderate to severe bilateral neural foraminal narrowing. At L5-S1, there is minimal disc bulge. No spinal canal stenosis or neural foraminal narrowing. Paravertebral soft tissues are unremarkable. Impression: Advanced degenerative spondylosis at L2-L3 and L3-L4. Moderate to advanced degenerative spondylosis a t L4-L5. Please see details above. Reviewed, dictated and finalized at location M. Impression: Advanced degenerative spondylosis at L2-L3 and L3-L4. Moderate to advanced dege nerative spondylosis at L4-L5. Please see details above.
--- NOTE | ~2024-10-22 | MR_ITS ---
MRI of the lumbar spine Clinical History: Stenosis Technique: Axial T2-weighted images, and sagittal T1-weighted, T2-weighted, and T2 fat-sat images wer e acquired. COMPARISON: 02/06/2024 Findings: No acute fracture or subluxation identified. Osseous alignment is unchanged from prior exam . There is stable extensive type I Modic marrow signal changes about the L3-L4 disc space. No suspici ous bone marrow signal abnormality seen. At L1-L2, there is no disc bulge or herniation. There is moderate to advanced facet arthropathy. No c entral canal stenosis or neural foraminal narrowing. At L2-L3, there is diffuse disc bulge with moderate to advanced facet arthropathy. There is mild cent ral canal stenosis. Neural foramina are preserved. At L3-L4, there is advanced degenerative disc narrowing. There is diffuse disc bulge with moderate to advanced facet arthropathy. There is moderate central canal stenosis and right lateral recess stenos is. There is severe right neural foraminal narrowing, and moderate left neural foraminal narrowing. At L4-L5, there is diffuse disc bulge with moderate to advanced facet arthropathy. There is mild cent ral canal stenosis. There is mild left neural foraminal narrowing. Right neural foramen probably pres erved. At L5-S1, there is minimal disc bulge with moderate facet arthropathy. No central canal stenosis or n eural foraminal narrowing. Paravertebral soft tissues are unremarkable. Impression: Advanced degenerative spondylosis at L3-L4 with extensive type I Modic signal change about this disc space. Please see details above. Additional mild to mild-moderate degenerative changes, as above. Reviewed, dictated and finalized at [facility]. Impression: Advanced degenerative spondylosis at L3-L4 with extensive type I Modic signal c hange about this disc space. Please see details above. Additional mild to mild-moderate degenerative changes, as above.
--- NOTE | ~2024-10-22 | XR_ITS ---
3 VIEWS LUMBAR SPINE Ordering provider: Yahaira Saha APRN History: . lumbar stenosis . Comparison: January 16, 2024 FINDINGS: VERTEBRAL BODIES: No visible fracture or subluxation. Degenerative changes of the spine. DISK SPACES: Narrowing of the disc L3-L4. Multilevel facet joint disease. SOFT TISSUES: Atherosclerotic changes of the aorta. IMPRESSION: No acute osseous abnormality lumbar spine. Degenerative disc disease at the level of L3-L4. Reviewed, dictated and finalized at location A.
--- OUTSIDE RECORDS SUMMARY | 2024-10-22 07:01 | XMS_ITS | Clinical Summary ---
Author Organization [facility] [place] [address] [facility] [address] [facility] [address] [place] [address] Care Team Providers Care Visual Basic Developer Name Role Phone Roque Epstein DO Primary Care Provider Allergies Active Allergy Reactions Criticality Noted Date Comments Tetracycline Other (See comments) Reaction: Unknown, , Medications HYDROcodone-marion taminophen (NORCO) 10-325 mg per tablet take 1 tablet by oral route every 4 - 6 hours as needed for pain 0 0 3 Active Additional Information Patient not taking.Reported on 12/24/2023 lisinopril (PRINIVIL,ZESTR IL) 20 mg tablet take 1 tablet by oral route every day 0 0 3 Active ibuprofen (ADVIL,MOTRIN) 200 mg tablet take 1 tablet by oral route every 6 hours as needed with food 30 0 3 Active nabumetone (RELAFEN) 750 mg tablet take 1 tablet by oral route 2 times every day 0 0 4 Active Additional Information Patient not taking.Reported on 12/24/2023 traMADol (ULTRAM) 50 mg tablet take 1 tablet by oral route every 4 - 6 hours as needed 0 0 4 Active lisinopril (PRINIVIL,ZESTR IL) 20 mg tablet take 1 tablet by oral route every day 0 0 4 Active metoclopramide (REGLAN) 10 mg tablet Take 1 tablet (10 mg total) by mouth every 6 (six) hours as needed (headache) 30 tablet 3 Active meclizine (ANTIVERT) 25 mg tablet Take 1 tablet (25 mg total) by mouth 3 (three) times a day as needed for dizziness 30 tablet 3 Active lisinopril-hydr oCHLOROthiazide (ZESTORETIC) 20-12.5 mg per tablet 3 Active lovastatin (MEVACOR) 20 mg tablet 3 Active diazePAM (VALIUM) 5 mg tabletIndicatio ns:Sedation Take one tablet po 1 hour prior to imaging, may repeat x1 immediately prior to testing if needed. 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 2 tablet 4 Active Additional Information Patient not taking.Reported on 12/24/2023 amLODIPine (NORVASC) 10 mg tablet Take 1 tablet (10 mg total) by mouth daily 4 Active metoprolol XL (TOPROL-XL) 25 mg extended release tablet Take 0.5 tablets (12.5 mg total) by mouth daily 4 Active QUEtiapine (SEROquel) 50 mg tablet Take 1 tablet (50 mg total) by mouth nightly 4 Active Active Problems Problem Noted Date Diagnosed Date Knee pain 08/05/2015 Overview (07/26/2016): Knee pain Heel pain 06/01/2015 Overview (07/27/2016): Heel pain Pain of foot 05/18/2015 Overview (07/27/2016): Foot pain Current smoker 05/18/2015 Overview (07/27/2016): Current smoker Surgical History Surgery Date Site/Laterality Comments KNEE ARTHROSCOPY 2006 Arthroscopy knee SHOULDER ARTHROSCOPY 2010 Arthroscopy shoulder Medical History Medical History Date Comments Depression Depression Hypertension Hypertension Hx Other Medical rotator cuff glover rg. 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 [employer] Gender Identity Not on file Sexual Orientation Not on file Obstetrics History Last Filed Vital Signs Vital Sign Reading Time Taken Comments Blood Pressure 110/86 12/24/2023 3:42 PM CDT Pulse 80 09/14/2022 9:34 AM CDT Temperature - - Respiratory Rate 21 08/16/2022 11:07 PM CDT Oxygen Saturation 97% 08/17/2022 4:30 AM CDT Inhaled Oxygen Concentration - - Weight 88.9 kg (196 lb) 12/24/2023 3:42 PM CDT Height 185.4 cm (6' 1) 12/24/2023 3:42 PM CDT Body Mass Index 25.86 12/24/2023 3:42 PM CDT Plan of Treatment Health Maintenance Due Date Last Done Comments Colon Cancer Screening-Colonoscopy 1962 Depression Screening 1962 Hepatitis C Screening 1962 Prostate Cancer Screening-PSA 1962 DTaP/Tdap/Td Vaccine (1 - Tdap) 1973 Hepatitis B Screening 1980 Regular Well Visit/Exam 18-64 1980 Pneumococcal vaccine <65 (1 of 2 - PCV) 1981 Zoster Vaccine (1 of 2) 2012 Influenza Vaccine (#1) 2024 02/27/2014 Insurance [facility] Care Teams Visual Basic Developer Relationship Specialty Start Date End Date Roque Epstein DO [facility] [place] [address] PCP - General Family Medicine 09/05/22
--- OUTSIDE RECORDS SUMMARY | 2024-10-22 07:01 | XMS_ITS | Clinical Summary ---
Author Organization [facility] Address [address] [place] [address] Care Team Providers Care Stone Carver Name Role Phone None, Provider MD Primary Care Provider Unavaila ble Allergies Active Allergy Reactions Criticality Noted Date Comments Tetracyclines & Related Hives High 12/05/2011 Medications acetaminophen (TYLENOL) 325 MG tablet Take 2 tablets (650 mg total) by mouth every 6 (six) hours as needed. 03/16/2024 Active Ascorbic Acid (VITAMIN C) 500 MG Chew Tab Chew 500 mg by mouth daily. Active vitamin D3, cholecalciferol , 25 mcg capsule Take 1 capsule (1,000 Units total) by mouth daily. Active FLUoxetine (PROZAC) 40 MG capsule Take 1 tablet by mouth daily. 05/18/2012 Active fluticasone propionate (FLONASE) 50 MCG/ACT nasal spray 2 sprays by Nasal route 2 (two) times daily. 01/01/2024 Active ibuprofen (MOTRIN) 600 MG tablet 03/16/2024 Active lisinopril-hydr oCHLOROthiazide (ZESTORETIC) 20-12.5 MG tablet Take 1 tablet by mouth daily. Active magnesium gluconate (MAGONATE) tablet Take 1 tablet (500 mg total) by mouth daily. Active metoprolol succinate ER (TOPROL-XL) 25 MG 24 hr tablet Take 0.5 tablets (12.5 mg total) by mouth daily. Active QUEtiapine (SEROQUEL) 50 MG tablet Take 1 tablet (50 mg total) by mouth nightly at bedtime. Active Zinc 100 MG Tab Take 300 mg by mouth daily. Active Active Problems Problem Noted Date Diagnosed Date Lumbar spondylosis 07/14/2024 Encounters Date Type Department Care Team Description 09/24/2024 Telephone [facility] [place] [address] [phone] Manuela Kramer, RN Follow Up (/) 09/22/2024 Telephone [facility] [place] [place] [address] [id number] Manuela Kramer, RN Follow Up Call 09/21/2024 8:40 AM CDT - 09/21/2024 9:00 AM CDT Surgery [facility] [place] [place] [address] [phone] Safia Mederos MD BLOCK MEDIAL BRANCH LUMBAR L3, L4, L5 #2, MBB #1 ON 08/12/24 NO BLOOD THINNER UMR SCHED 08/17/24 TLP 09/21/2024 7:57 AM CDT - 09/21/2024 9:12 AM CDT Hospital Encounter [facility] [place] [place] [address] [phone] Safia Mederos MD Discharge Disposition: Home or Self Care (Routine Discharge) 09/21/2024 Travel 08/17/2024 Telephone [facility] [place] [place] [address] [id number] Safia Mederos MD Follow Up Call 08/12/2024 11:00 AM CDT - 08/12/2024 11:20 AM CDT Surgery [facility] [place] [place] [address] [phone] Safia Mederos MD BLOCK MEDIAL BRANCH LUMBAR L3-4, L4-5 08/12/2024 9:44 AM CDT - 08/12/2024 11:31 AM CDT Hospital Encounter [facility] [place] [address] [phone] Safia Mederos MD Discharge Disposition: Home or Self Care (Routine Discharge) 08/12/2024 Travel from Last 3 Months Social History Tobacco Use Types Packs/Day Years Used Date Smoking Tobacco: Smoker, Current Status Unknown Cigarettes Smokeless Tobacco: Never Tobacco Cessation:Ready to Q uit: No; Counseling Given: No Alcohol Use Standard Drinks/Week Comments Never 0 (1 standard drink = 0.6 oz pur e alcohol) Sex and Gender Information Value Date Recorded Sex Assigned at Male 08/12/2024 9:38 AM CDT Legal Sex Male 9:05 PM CDT Gender Identity Not on file Sexual Orientation Not on file Last Filed Vital Signs Vital Sign Reading Time Taken Comments Blood Pressure 121/84 09/21/2024 9:03 AM CDT Pulse 70 09/21/2024 9:03 AM CDT Temperature 36.4 C (97.5 F) 09/21/2024 8:31 AM CDT Respiratory Rate 18 09/21/2024 9:03 AM CDT Oxygen Saturation 96% 09/21/2024 9:03 AM CDT Inhaled Oxygen Concentration - - Weight 90.3 kg (199 lb) 09/21/2024 8:31 AM CDT Height 185.4 cm (6' 1) 09/21/2024 8:31 AM CDT Body Mass Index 26.25 09/21/2024 8:31 AM CDT Plan of Treatment Health Maintenance Due Date Last Done Comments Colorectal Cancer Screening Colonoscopy (10 Years) 1962 Annual Physical 1965 Hepatitis C 1980 DTaP, Tdap and Td Vaccines ( 1 - Tdap) 1981 Pneumococcal Vaccine: 50+ Ye ars (1 of 2 - PCV) 1981 Zoster Vaccines (1 of 2) 2012 COVID-19 Vaccine ( - 2023-2 5 season) 2023 RSV Immunization or 60+ Years (1 - 1-dose 75+ series) 2037 Meningococcal B Vaccine Aged Out No l onger eligible based on patient's age to complete this topic Meningococcal Vaccine Aged Out No amie frank eligible based on patient's age to complete this topic RSV Immunizations Under 20 Months Aged Out No longer eligible based on patient's age to complete this topic Procedures Procedure Name Priority Date/Time Associated Diagnosis Comments INJ PARAVERTEBRAL FACET JOINT W IMAGE SINGL 09/21/2024 8:51 AM CDT Lumbar spondylosis XR PAIN CLINIC C-ARM Today 09/21/2024 8:07 AM CDT BLOCK MEDIAL BRANCH LUMBAR 08/12/2024 11:07 AM CDT Lumbar Spondylosis XR PAIN CLINIC C-ARM Today 08/12/2024 10:15 AM CDT XR PAIN CLINIC C-ARM Today 08/12/2024 10:00 AM CDT COLONOSCOPY Routine STRINGING MACHINE TENDER from Last 3 Months or Most Recently Relevant to Health Maintenance Results * XR PAIN CLINIC C-ARM (09/21/2024 8:07 AM CDT) Only the most recent of3 resultswithin the time period is included. Narrative Radiology, Technologist - 09/21/2024 8:07 AM CDT This report does not contain a radiologist's interpretation. Please review associated procedure and/or operative report. Safia Mederos MD GENERAL IMAGING Final Result * Colonoscopy ( STRINGING MACHINE TENDER) Narrative [facility] TO EPIC CONVERSION - STRINGING MACHINE TENDER Documented hx of procedure Procedure Note Jeannie Lopez MD - 02/23/2018 Documented hx of procedure us Jeannie De Guzman Md, MD GI PROCEDURE ORDERABLES Final Result [facility] TO EPIC CONVERSION from Last 3 Months or Most Recently Relevant to Health Maintenance Insurance R Care Teams Stone Carver Relationship Specialty Start Date End Date None, Provider, PCP - General UNKNOWN PHYSICIAN SPECIALTY 08/12/24
--- OUTSIDE RECORDS SUMMARY | 2024-10-22 07:01 | XMS_ITS | Encounter Summary ---
Author Organization [facility] Address [address] [place] [address] Care Team Providers Care Data Entry Machine Operator Name Role Phone Roque Epstein DO Primary Care Provider [phone] Reason for Visit * Reason Onset Date Comments Discuss Surgery 03/04/2024 Encounter Details Date Type Department Care Team (Late st Contact Info) Description 03/04/2024 Telephone [facility] - Centralized Scheduling [address] [place] [address] Ludwin Allen MD [address] [place] [address] Discuss Surgery Social History Tobacco Use Types Packs/Day Years Used Date Smoking Tobacco: Every Day Cigarettes Smokeless Tobacco: Never Alcohol Use Standard Drinks/Week Comments Never 0 (1 standard drink = 0.6 oz pur e alcohol) Sex and Gender Information Value Date Recorded Sex Assigned at Not on file Legal Sex Male 8:54 AM ENDOSCOPY TECH Gender Identity Not on file Sexual Orientation Not on file documented as of this encounter Miscellaneous Notes * Telephone Encounter - Suzie Munoz - 03/04/2024 2:49 PM CST Pt called in to review surgery details. Please call back at [phone]. SCOPY TECH documented in this encounter Plan of Treatment Not on file documented as of this encounter Visit Diagnoses Not on filedocumented in this encounter Care Teams Data Entry Machine Operator Relationship Specialty Start Date End Date Roque Epstein DO [address] [place] [address] PCP - General Family Medicine 01/01/24 documented as of this encounter
--- OUTSIDE RECORDS SUMMARY | 2024-10-22 07:01 | XMS_ITS | Clinical Summary ---
Author Organization [facility] Address [address] [place] [address] Care Team Providers Care Staple Cutter Name Role Phone Roque Epstein DO Primary Care Provider [phone] Source Comments [facility],non-owned Affiliates and Associated Physician Practices is amultiple site organization consisting of ambulatory clinics and hospital sitesin [place]. This disclosure is being madepursuant to the Care Everywhere program and may not contain all information available regarding this patient. Last updated 18.[facility] [employer] Allergies Active Allergy Reactions Criticality Noted Date Comments Tetracycline Urticaria Medium 01/01/2024 Medications * Be aware that medications may not be up to date on this document. Alwaysverify current medications with the patient. QUEtiapine (SEROquel) 50 MG tablet Take 1 (one) tablet by mouth at bedtime Active amLODIPine (Norvasc) 10 MG tablet Take 1 (one) tablet by mouth once daily 4 Active Breztri Aerosphere 160-9-4.8 MCG/ACT inhaler Inhale 2 (two) puffs by mouth as needed 2 Active lisinopril-hyd roCHLOROthiazi de (Prinzide; Zestoretic) 20-12.5 MG tablet Take 1 (one) tablet by mouth once daily Active ascorbic acid (Vitamin C) 500 MG tablet Take 1 (one) tablet by mouth once daily Active vitamin D3 (D3) (25 MCG) 1000 UNIT capsule Take 1 (one) capsule by mouth once daily Active magnesium gluconate (Mag-G) 500 (27 Mg) MG tablet Take 1 (one) tablet by mouth once daily Active Zinc 100 MG Take 300 mg by mouth once daily Active fluticasone propionate (Flonase) 50 MCG/ACT nasal sprayIndicatio ns:Chronic rhinitis,Hyper trophy of inferior nasal turbinate [place] 2 (two) sprays into each nostril 2 times daily 48 g 4 4 Active azelastine (Astelin) 0.1 % nasal sprayIndicatio ns:Chronic rhinitis,Hyper trophy of inferior nasal turbinate [place] 1 (one) spray to 2 (two) sprays into each nostril 2 times daily Aim tip of spray bottle towards the SAME EYE as the nostril you are spraying in (e.g. when spraying into the left nostril, aim it towards the left eye) 30 mL 4 4 Active HYDROcodone-ac etaminophen ([place]) 5-325 MG tablet Take 1 (one) tablet by mouth every 8 hours as needed For pain. 4 Active metoprolol succinate XL 24hr (Toprol XL) 25 MG tablet Take 0.5 (one-half) tablet by mouth once daily 4 Active tamsulosin (Flomax) 0.4 MG capsule Take 1 (one) capsule by mouth once daily 4 Active oxyCODONE, immediate release, (Roxicodone) 5 MG tabletIndicati ons:Obstructiv e sleep apnea,Deviated nasal septum,Hypertr ophy of inferior nasal turbinate Take 1 (one) tablet by mouth every 6 hours as needed for Pain 12 tablet 4 Active acetaminophen (Tylenol) 325 MG tablet Take 2 (two) tablets by mouth every 6 hours as needed for Fever or Pain Maximum allowable Acetaminophen amount = 4 Grams (4000 mg) / 24 hours. 60 tablet 4 Active Active Problems Problem Noted Date Diagnosed Date Knee pain 08/05/2015 Overview (03/12/2024): Knee pain Current smoker 05/18/2015 Overview (03/12/2024): Current smoker Heel pain 05/18/2015 Overview (03/12/2024): Heel pain Immunizations Immunization Administration Dates Next Due FLU VACCINE TRI IIV3 SPLIT IM (FLUVIRIN) 014 Family History Medical History Relation Name Comments Heart Failure Brother CVA Father Cancer - Other Father Dementia Father Diabetes; unknown type Father Hearing Loss - Unspecified Father Heart Failure Father High Cholesterol Father Hypertension Father Asthma Mother Diabetes; unknown type Mother Heart Failure Mother Hypertension Mother Hearing Loss - Unspecified Sister Relation Name Status Comments Brother Father Mother Sister Social History Tobacco Use Types Packs/Day Years Used Date Smoking Tobacco: Every Day Cigarettes Smokeless Tobacco: Never Tobacco Cessation:Ready to Q uit: Not Asked; Counseling Given: Not Answered Alcohol Use Standard Drinks/Week Comments Yes 0 (1 standard drink = 0.6 oz pur e alcohol) very rare Sex and Gender Information Value Date Recorded Sex Assigned at Not on file Legal Sex Male 8:54 AM BUSINESS ADMINISTRATION INSTRUCTOR Gender Identity Not on file Sexual Orientation Not on file Last Filed Vital Signs Vital Sign Reading Time Taken Comments Blood Pressure 167/103 04/21/2024 8:33 AM BUSINESS ADMINISTRATION INSTRUCTOR pt did not take bp meds yet Pulse 83 04/21/2024 8:33 AM BUSINESS ADMINISTRATION INSTRUCTOR Temperature 36.3 C (97.3 F) 03/16/2024 4:42 PM BUSINESS ADMINISTRATION INSTRUCTOR Respiratory Rate 13 03/16/2024 5:18 PM BUSINESS ADMINISTRATION INSTRUCTOR Oxygen Saturation 97% 04/21/2024 8:3 3 AM BUSINESS ADMINISTRATION INSTRUCTOR Inhaled Oxygen Concentration - - Weight 92.8 kg (204 lb 9.6 oz) 04/21/2024 8:33 AM BUSINESS ADMINISTRATION INSTRUCTOR Height 185.4 cm (6' 1) 04/21/2024 8:33 AM BUSINESS ADMINISTRATION INSTRUCTOR Body Mass Index 26.99 04/21/2024 8:33 AM BUSINESS ADMINISTRATION INSTRUCTOR Plan of Treatment Health Maintenance Due Date Last Done Comments COLOGUARD (AGES 45-75) - COL ON CA SCREENING 1962 COLON MONITORING 1962 COLONOSCOPY - COLON CA SCREENING 1962 CT COLONOGRAPHY - COLON CA SCREENING 1962 Colorectal Cancer Screening 1962 FIT - COLON CA SCREENING 1962 FLEX SIG - COLON CA SCREENING 1962 LIPID TESTING 1962 HIV SCREENING 1977 HEPATITIS C SCREENING 03/20/1980 DTAP/TDAP/TD VACCINES (1 - Tdap) 1981 PNEUMOCOCCAL VACCINE 50+ (1 of 2 - PCV) 1981 ZOSTER VACCINE (1 of 2) 2012 COVID-19 VACCINE (1 - 2023-2 5 season) 2023 DEPRESSION SCREENING 04/22/2024 INFLUENZA VACCINE (Season Ended) 2024 02/27/2014 SCREENING FOR DIABETES 08/16/2025 3, 08/16/2022 Respiratory Syncytial Virus (RSV) Vaccine Pt: or over 60 yrs (1 - 1-dose 75+ series) 2037 HEPATITIS B VACCINE Aged Out No longe r eligible based on patient's age to complete this topic HIB VACCINE Aged Out No longer eligi ble based on patient's age to complete this topic HPV VACCINE Aged Out No longer eligi ble based on patient's age to complete this topic MENINGOCOCCAL (Group B) VACCINE SHARED DECISION-MAKING Aged Out No longer eligible based on patient's age to complete this topic MENINGOCOCCAL GROUPS A/C/Y/W VACCINE Aged Out No longer eligible b ased on patient's age to complete this topic Insurance [facility] SELF PAY NO INSURANCE Member Subscriber Plan / Payer (Ef fective for All Dates) Name:Francisco Kothari Member ID:Not on file Relation to Subscriber:Not on file Name:FRANCISCO KOTHARI Subscriber ID:Not on file Address: [address] [place], [place] [id number] Payer ID:Not on file Group ID:Not on file Type:Self Pay Address: [facility] SELF PAY NO INSURANCE Member Subscriber Plan / Payer (Ef fective for All Dates) Name:Francisco Kothari Member ID:Not on file Relation to Subscriber:Not on file Name:FRANCISCO KOTHARI Subscriber ID:Not on file Address: [address] [place], [place] [id number] Payer ID:Not on file Group ID:Not on file Type:Self Pay Address: [facility] SELF PAY NO INSURANCE Member Subscriber Plan / Payer (Ef fective for All Dates) Name:Francisco Kothari Member ID:Not on file Relation to Subscriber:Not on file Name:FRANCISCO KOTHARI Subscriber ID:Not on file Address: [address] [place] [address] Payer ID:Not on file Group ID:Not on file Type:Self Pay Address: [facility] Care Teams Staple Cutter Relationship Specialty Start Date End Date Roque Epstein DO [address] [place] [address] [phone] PCP - General Family Medicine 01/01/24
--- OUTSIDE RECORDS SUMMARY | 2024-10-22 07:01 | XMS_ITS | Referral Summary ---
Author Organization [facility] [address] Address [address] [place] [address] Care Team Providers Care Veterinary X Ray Operator Name Role Phone Roque Epstein DO [...] prior to testing if needed. Must have mail truck driver while taking medication. 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 HMO/PPO Address: [facility] [address] [place] [address] [facility] HMO/PPO Address: [address] [address] [place] [address] R [facility] H[facility]/PPO Address: [facility] [address] [place] [address] Care Teams Veterinary X Ray Operator Relationship Specialty Start Date End Date Roque Epstein DO [address] [place] [address] PCP - General Family Medicine 09/05/22
== END 2024-10-22 06:56 | disposition home or self-care (01) ==
LOC: CHSIMG 06:58
PROVIDERS: PCP Family Medicine; Visit Provider Nurse Practitioner Adult Health
DX: M48.061 Spinal stenosis, lumbar region without neurogenic claudication (principal); M43.06 Spondylolysis, lumbar region; M51.369 Other intervertebral disc degeneration, lumbar region without mention of lumbar back pain or lower extremity pain
CPT/HCPCS: 72110; 72131; 72148

== ENCOUNTER 2024-11-21 10:27 | Outpatient (CLI) | payer OTHER, SELFPAY ==
--- OUTSIDE RECORDS SUMMARY | 2024-11-21 10:30 | XMS_ITS | Clinical Summary ---
Author Organization [facility] Address [address] [place] [address] Care Team Providers Care Ball Racker Name Role Phone None, Provider MD Primary [...] Type Department Care Team Description 09/24/2024 Telephone [facility] [place] [address] [phone] Manuela Kramer, JACOB Follow Up (/) 09/22/2024 Telephone [facility] [place] [address] [phone] Manuela Kramer RN Follow Up Call 09/21/2024 8:40 AM CDT - 09/21/2024 9:00 AM CDT Surgery [facility] [place] [address] [phone] Safia Mederos MD BLOCK MEDIAL BRANCH LUMBAR L3, L4, L5 #2, MBB #1 ON 08/12/24 NO BLOOD THINNER UMR SCHED 08/17/24 TLP 09/21/2024 7:57 AM CDT - 09/21/2024 9:12 AM CDT Hospital Encounter [facility] [place] [address] [phone] Safia Mederos MD Discharge Disposition: Home or Self Care (Routine Discharge) 09/21/2024 Travel from Last 3 Months Social History [...] CLINIC C-ARM Today 09/21/2024 8:07 AM CDT COLONOSCOPY Routine CRIME SCENE SPECIALIST from Last 3 Months or Most Recently Relevant to Health Maintenance Results * XR PAIN CLINIC C-ARM (09/21/2024 8:07 AM CDT) Narrative Radiology, Technologist - 09/21/2024 8:07 AM CDT This report does not contain a radiologist's interpretation. Please review associated procedure and/or operative report. Safia Mederos MD GENERAL IMAGING Final Result * Colonoscopy ( CRIME SCENE SPECIALIST) Narrative [facility] TO EPIC CONVERSION - CRIME SCENE SPECIALIST Documented hx of procedure Procedure Note Jeannie Pineda, - 02/23/2018 Documented hx of procedure us Generic Conversion Md [facility] GI PROCEDURE ORDERABLES Final Result [facility] TO EPIC CONVERSION from Last 3 Months or Most Recently Relevant to Health Maintenance Insurance [employer] Care Teams Ball Racker Relationship Specialty Start Date End Date None, Provider, PCP - General UNKNOWN PHYSICIAN SPECIALTY 08/12/24
--- OUTSIDE RECORDS SUMMARY | 2024-11-21 10:30 | XMS_ITS | Encounter Summary ---
Author Organization [facility] Address [address] [place] [address] Care Team Providers Care Control Specialist Name Role Phone Roque Epstein DO Primary Care Provider Reason for Visit * Reason Onset Date Comments Discuss Surgery 03/04/2024 Encounter Details Date Type Department Care Team (Late st Contact Info) Description 03/04/2024 Telephone [facility] - Centralized Scheduling [address] [place] [address] Ludwin Allen MD [address] [place] [address] Discuss Surgery Social History Tobacco Use Types Packs/Day Years Used Date Smoking Tobacco: Every Day Cigarettes Smokeless Tobacco: Never Alcohol Use Standard Drinks/Week Comments Never 0 (1 standard drink = 0.6 oz pur e alcohol) Sex and Gender Information Value Date Recorded Sex Assigned at Not on file Legal Sex Male 8:54 AM NAPPER TENDER Gender Identity Not on file Sexual Orientation Not on file documented as of this encounter Miscellaneous Notes * Telephone Encounter - Suzie Munoz - 03/04/2024 2:49 PM CST Pt called in to review surgery details. Please call back at [phone]. ER TENDER documented in this encounter Plan of Treatment Not on file documented as of this encounter Visit Diagnoses Not on filedocumented in this encounter Care Teams Control Specialist Relationship Specialty Start Date End Date Roque Epstein DO [address] [place] [address] PCP - General Family Medicine 01/01/24 documented as of this encounter
--- OUTSIDE RECORDS SUMMARY | 2024-11-21 10:30 | XMS_ITS | Clinical Summary ---
Author Organization [facility] Address [address] [place] [address] Care Team Providers Care Air Traffic Control Manager Name Role Phone Roque Epstein DO Primary Care Provider [phone] Source Comments [facility],non-owned Affiliates and Associated Physician Practices is amultiple site organization consisting of ambulatory clinics and hospital sitesin [place], [place], [place] and [place]. This disclosure is being madepursuant to the Care Everywhere program and may not contain all information available regarding this patient. Last updated 18.[facility] Pictorious Allergies Active Allergy Reactions Criticality Noted Date [...] ns:Chronic rhinitis,Hyper trophy of inferior nasal turbinate [place] 2 (two) sprays into each nostril 2 times daily 48 g 4 4 Active azelastine (Astelin) 0.1 % nasal sprayIndicatio ns:Chronic rhinitis,Hyper trophy of inferior nasal turbinate [place] 1 (one) spray to 2 (two) sprays into each nostril 2 times daily Aim tip of spray bottle towards the SAME EYE as the nostril you are spraying in (e.g. 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 Gender Identity Not on file Sexual Orientation Not on file Last Filed Vital Signs Vital Sign Reading Time Taken Comments Blood Pressure 167/103 04/21/2024 8:33 AM SUPPLY CRIB ATTENDANT pt did not take bp meds yet Pulse 83 04/21/2024 8:33 AM SUPPLY CRIB ATTENDANT Temperature 36.3 C (97.3 F) 03/16/2024 4:42 PM SUPPLY CRIB ATTENDANT Respiratory Rate 13 03/16/2024 5:18 PM SUPPLY CRIB ATTENDANT Oxygen Saturation 97% 04/21/2024 8:3 3 AM SUPPLY CRIB ATTENDANT Inhaled Oxygen Concentration - - Weight 92.8 kg (204 lb 9.6 oz) 04/21/2024 8:33 AM SUPPLY CRIB ATTENDANT Height 185.4 cm (6' 1) 04/21/2024 8:33 AM SUPPLY CRIB ATTENDANT Body Mass Index 26.99 04/21/2024 8:33 AM SUPPLY CRIB ATTENDANT Plan of Treatment Health Maintenance Due Date [...] season) 2023 DEPRESSION SCREENING 04/22/2024 INFLUENZA VACCINE (#1) 2024 02/27/2014 SCREENING FOR DIABETES 08/16/2025 3, [...] patient's age to complete this topic Insurance [facility] SELF PAY NO INSURANCE Member Subscriber Plan / Payer (Ef fective for All Dates) Name:Francisco Kothari Member ID:Not on file Relation to Subscriber:Not on file Name:FRANCISCO KOTHARI Subscriber ID:Not on file Address: [address] [place], [place] [id number] Payer ID:Not on file Group ID:Not on file Type:Self Pay Address: [facility] SELF PAY NO INSURANCE Member Subscriber Plan / Payer (Ef fective for All Dates) Name:Francisco Kothari Member ID:Not on file Relation to Subscriber:Not on file Name:FRANCICSO KOTHARI Subscriber ID:Not on file Address: [address] [place], [place] [id number] Payer ID:Not on file Group ID:Not on file Type:Self Pay Address: [facility] SELF PAY NO INSURANCE Member Subscriber Plan / Payer (Ef fective for All Dates) Name:Francisco Kothari Member ID:Not on file Relation to Subscriber:Not on file Name:FRANCISCO KOTHARI Subscriber ID:Not on file Address: [address] [place] [address] Payer ID:Not on file Group ID:Not on file Type:Self Pay Address: [facility] Care Teams Air Traffic Control Manager Relationship Specialty Start Date End Date Roque Epstein DO [address] [place] [id number] PCP - General Family Medicine 01/01/24
--- OUTSIDE RECORDS SUMMARY | 2024-11-21 10:30 | XMS_ITS | Clinical Summary ---
Author Organization [facility] [address] [facility] [address] [facility] [address] [place] [address] Care Team Providers Care Assurance Engineer Name Role Phone Roque Epstein DO Primary [...] prior to testing if needed. Must have tram driver while taking medication. 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
--- OUTSIDE RECORDS SUMMARY | 2024-11-21 10:30 | XMS_ITS | Referral Summary ---
Author Organization [facility] [address] [place] [address] Care Team Providers Care Net Mobile Developer Name Role Phone Roque Epstein DO [...] prior to testing if needed. Must have clark driver while taking medication. 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 Gender Identity Not on file Sexual Orientation [...] Plan of Treatment Not on file Insurance [facility] H[facility]PPO Address: [facility] [address] [place] [address] [facility] HMO/PPO Address: [address] [address] [place] [address] [facility] H[facility]/PPO Address: [facility] [address] [place] [address] Care Teams Net Mobile Developer Relationship Specialty Start Date End Date Roque Epstein DO [address] [place] [address] PCP - General Family Medicine 09/05/22
[2024-11-21 11:14] LABS: Hematocrit 43.1 % (40.0-54.0); Hemoglobin 14.4 g/dL (14.0-18.0); Immature Granulocyte Percent A 0.4 % (0.0-0.0); Lymphocytes Absolute Auto 2.59 K/mm3 (1.10-4.50); Mean Corpuscular HGB Conc 33.4 g/dL (32-36); Mean Corpuscular Hemoglobin 32.2 pg (27.0-31.0); Mean Corpuscular Volume 96.4 fL (78.0-102.0); Nucleated Red Blood Cells Absolute Auto 0.00 K/mm3 (0.00-0.00); Nucleated Red Blood Cells Perc 0.0 % (0-0.0); Platelet Count Result 263 K/mm3 (150-420); Red Blood Count 4.47 M/mm3 (4.70-6.10); White Blood Count 11.2 K/mm3 (4.8-10.8)
[2024-11-21 11:32] LABS: Alanine Aminotransferase 19 U/L (6-50); Albumin Level 4.5 g/dL (3.5-5.1); Alkaline Phosphatase 60 U/L (38-126); Aspartate Amino Transferase 26 U/L (17-59); Bilirubin,Total 0.8 mg/dL (0.2-1.3); Blood Urea Nitrogen 15 mg/dL (9-20); Calcium 9.4 mg/dL (8.4-10.2); Carbon Dioxide 27 mmol/L (22-30); Cholesterol 198 mg/dL (0-200); Estimated Glomerular Filt Rate > 60; Glucose 95 mg/dL (65-110); HDL Direct 40 mg/dL; Total Protein 7.1 g/dL (6.3-8.2); Triglycerides 87 mg/dL (<150)
[2024-11-21 12:03] LABS: Thyroid Stimulating Hormone 0.938 uIU/mL (0.465-4.680)
[2024-11-21 12:46] LABS: Anion Gap 5 mmol/L (4-12); Chloride 104 mmol/L (98-107); Osmolality Calculated 282 mOsm/kg (285-295); Potassium 4.0 mmol/L (3.4-5.0); Sodium 136 mmol/L (137-145)
== END 2024-11-21 10:28 | disposition home or self-care (01) ==
LOC: CHSLAB 10:28
PROVIDERS: PCP Family Medicine; Visit Provider Family Medicine
DX: I10 Essential (primary) hypertension (principal); I25.10 Atherosclerotic heart disease of native coronary artery without angina pectoris; E03.9 Hypothyroidism, unspecified
CPT/HCPCS: 36415; 80053; 80061; 82172; 83695; 84443; 85025

== ENCOUNTER 2025-01-25 10:26 | Emergency (ER) | payer OTHER, SELFPAY ==
[2025-01-25] VITALS (24 sets, daily range): BP systolic 125–145; BP diastolic 77–99; PULSE 56–74; RESP 10–18; TEMP 36.4; O2SAT 95–100
--- NOTE | ~2025-01-25 | CT_ITS ---
CTA CHEST CLINICAL HISTORY: CP/SOA . COMPARISON: Chest x-ray today CTA chest 08/16/2023 TECHNIQUE: Helical CTA performed from thoracic inlet to upper abdomen IV contrast information not listed in PACS Coronal, sagittal reformats. Multiplanar MIPS CT images acquired with automatic exposure control for dose reduction DLP: 362 mGy-cm FINDINGS: Pulmonary arteries: No PE. Thoracic Aorta: No dissection or aneurysm. Heart/pericardium: Mild coronary artery calcification. RV/LV ratio: Normal. Lungs/Pleura: 3 mm nodule left upper lobe; no surveillance indicated given size. Significant volume loss right middle lobe with mild scarring Tracheobronchial tree: Patent. Nodes: No enlarged nodes. Bones: No acute bony abnormality. Soft tissues: Unremarkable. Visualized upper abdomen: Gallstone. IMPRESSION: 1. No PE or other acute cardiopulmonary findings. Reviewed, dictated and finalized at location R.
--- NOTE | ~2025-01-25 | XR_ITS ---
EXAMINATION: XR chest 2V DATE: 01/25/2025 10:57 INDICATION: Chest pain TECHNIQUE: frontal and lateral views of the chest were obtained. COMPARISON: Chest radiograph dated 08/14/[address] dated 08/16/2023 FINDINGS: The lungs are clear with no focal airspace opacities, pulmonary edema, pleural effusion or pneumothorax. The cardiomediastinal silhouette is normal. Visualized bones and soft tissues are unremarkable. IMPRESSION: 1. No acute cardiopulmonary disease. Reviewed, dictated and finalized at location A.
--- NOTE | 2025-01-25 10:30 | ECG_ITS ---
Test Date: 2025-01-25 10:40:42 Measurements Intervals [place] Rate: 61 P: 70 VA: 145 QRS: 71 QRSD: 82 T: 56 QT: 441 QTc: 447 Interpretive Statements SINUS RHYTHM BASELINE ARTIFACT- I, III, AVR, AVL, AVF NORMAL ECG No previous ECG available for comparison Electronically Signed On 01-25-2025 11:09:39 CDT by Jaspreet Smyth D.O.
--- NOTE | 2025-01-25 10:40 | ED_ITS ---
HPI - Chest Pain General Chief Complaint: Chest Pain Stated Complaint: chest pain History of Present Illness HPI narrative: Patient is a 64-year-old male who presents to the ER with chest pain. Sudden onset after getting to work. It occurred at 9:00 a.m.. Burning and pressure in the center of his chest. Radiates left neck and down the left arm. No fevers or chills or sweats. No aggravating factors. Initially had mild relief with 1 dose of nitroglycerin by EMS but did not have any improvement after 2nd dose. Reports some pain with deep breath. Initially thought he had acid reflux so he took Tums without improvement. He has no personal history of coronary disease but does have family history. He also has history of hypertension and smoking. Denies diabetes. Related Data Home Medications ?Medication ?Instructions ?Recorded ?Confirmed ?Last Taken ?Type ascorbic acid (vitamin C) 500 mg 500 mg PO DAILY 10/0108/07/24 Unknown History tablet cholecalciferol (vitamin D3) 50 50 mcg PO DAILY 08/07/24 Unknown History mcg (2,000 unit) tablet (Vitamin D3) fluoxetine 20 mg tablet 20 mg PO DAILY 10/02/2307/21 Unknown History magnesium 500 mg tablet 500 mg PO DAILY 10/02/23 Unknown History zinc sulfate 220 mg capsule 220 mg PO DAILY 10/02/23 0 08/07/24 Unknown History Allergies Allergy/AdvReac Type Severity Reaction Status Date / Time tetracycline Allergy Intermediate Hives Verified 01/25/25 10:41 Review of Systems 2 Review of Systems: All systems reviewed & are unremarkable except as noted in HPI and below Constitutional: Constitutional: Reports no additional constitutional complaints ENT: Reports system reviewed and no additional complaints, except as documented Cardiovascular: Cardiovascular: Reports no additional cardiovascular complaints Respiratory: Respiratory: Reports no additional respiratory complaints Gastrointestinal: Gastrointestinal: Reports no additional gastrointestinal complaints Musculoskeletal: Musculoskeletal: Reports no additional musculoskeletal complaints [facility] Past Medical History Medical History Insomnia Otitis externa Arthritis Anxiety Urinary frequency Stomach pain Abnormal vision Headache Osteoarthritis of right patellofemoral joint Obesity, Class I, BMI 30-34.9 Nicotine dependence Hypertension Depression COPD (chronic obstructive pulmonary disease) Surgical History Surgical History History of surgery R Leg, 2004, Carolee History of right knee surgery 3 past SX datin (), 2003 (Carolee), 2004 History of knee surgery Left History of shoulder surgery History of back surgery Family History Family History Mother Acute myocardial infarction Asthma Hypertension Father Hypertension Diabetes mellitus Malignant neoplasm of prostate Heart disease Cerebrovascular accident Cancer Other Arthritis Family history of cardiovascular disease Family history of stroke Social History Social History Smoking packs per day: 0.5 Smoking cigarettes per day: 10.0 Years smoked: 40 Smoking pack-years: 20.00 Smoking status: Current every day smoker Tobacco type: cigarettes Alcohol intake: current Substance use: never Substance use type: does not use Do You Feel Safe in your Home?: Yes Lack of Transportation: No Lack of Food: Never True Current Housing: I Have Housing Concerned About Future Housing: No Difficulty Paying Gas/Electric Bills: No Difficulty Paying for Meds: No Currently Unemployed: No Education: High School Diploma/GED Difficulty w/ Childcare or Family Care: No Living arrangements: with family Occupation/Education: occupation 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 HEAD: Normocephalic, atraumatic. ENT: Mucous membranes moist. CHEST: Clear to auscultation. No respiratory distress. HEART: Regular rate and rhythm. Normal peripheral pulses. ABDOMEN: Soft, nontender, nondistended. EXTREMITIES: Normal range of motion. No edema. SKIN: Warm, dry, no rash. NEURO: Alert and oriented x3. PSYCH: Normal mood and affect. Course Course Emergency Course: No significant relief with nitroglycerin, I decreased to 4/10 pain after morphine, pain fully abated after GI cocktail. Patient resting comfortably. Troponin negative x2. EKGs are normal. I have discussed the case with his PCP who would like him to call the office tomorrow and they will get him scheduled for close follow-up and a stress test. Patient feels comfortable with this treatment plan and will be discharged. Vital Signs Vital signs: Vital Signs Oxygen Delivery Room Air 01/25/25 10:30 Temperature 97.5 F L 01/25/25 10:31 Pulse Rate 59 L 01/25/25 14:01 Respiratory Rate 12 01/25/25 14:01 Blood Pressure 129/85 01/25/25 14:30 Pulse Oximetry 98 01/25/25 14:56 Oxygen Delivery Room Air 01/25/25 10:31 MDM - Chest Pain Lab Data 01/25/25 10:42 01/25/25 10:42 Labs: Lab Results 01/25/25 01/25/25 Range/Units 10:42 13:20 WBC 11.1 H (4.5-10.0) K/mm3 RBC 4.39 L (4.6-6.20) M/mm3 Hgb 14.1 (14.0-18.0) g/dL Hct 42.7 (42.0-52.0) % MCV 97.3 (80-100) fl MCH 32.1 (26-34) pg MCHC 33.0 (32-36) g/dl RDW 12.8 (11.5-14.5) % Plt Count 234 (150-375) k/mm3 MPV 9.2 (7.4-10.4) fl Immature Gran % (Auto) 0.3 (0-0.5) % Neut % (Auto) 63.4 (45.5-73.1) % Lymph % (Auto) 27.8 (18.3-44.2) % Tucker % (Auto) 6.8 (2.6-8.5) % Eos % (Auto) 1.3 (0-4.4) % Baso % (Auto) 0.4 (0.2-1.2) % Lymph # (Auto) 3.09 (0.9-3.2) K/mm3 Tucker # (Auto) 0.8 H (0.1-0.6) K/mm3 Eos # (Auto) 0.1 (0-0.3) K/mm3 Baso # (Auto) 0.0 (0.0-0.1) K/mm3 Abs Immat Gran (auto) 0.03 (0.00-0.031) K/mm3 Absolute Neuts (auto) 7.0 H (1.3-6.7) K/mm3 Absolute Nucleated RBC 0.000 (0.0-0.012) K/mm3 Nucleated RBC % 0.0 (0.0-0.2) % PT 13.2 (11.1-14.7) Seconds INR 1.0 APTT 28.0 (22.3-36.8) Seconds Sodium 137 (137-145) mmol/L Potassium 4.1 (3.4-5.0) mmol/L Chloride 104 (98-107) mmol/L Carbon Dioxide 26 (22-30) mmol/L Anion Gap 7 (4-12) mmol/L BUN 13 (9-20) mg/dL Creatinine 0.92 (0.7-1.3) mg/dL Estim Creat Clear Calc 83 ml/min Estimated GFR > 60 (59 - ) Glucose 101 (65-110) mg/dL Calcium 9.6 (8.4-10.2) mg/dL Total Bilirubin 0.7 (0.2-1.3) mg/dL AST 35 (17-59) U/L ALT 22 (6-50) U/L Alkaline Phosphatase 68 (38-126) U/L Troponin I < 0.012 < 0.012 (0.000-0.034) ng/mL Total Protein 6.9 (6.3-8.2) g/dL Albumin 4.1 (3.5-5.1) g/dL Lipase 287 (23-300) U/L ECG Data EKG #1: ECG completion date: 01/25/25 ECG completion time: 10:40 EKG Interpretation: normal rate (61), sinus rhythm, no ST changes, normal QRS, normal QT and NL axis Discharge Plan Discharge Clinical Impression: Chest pain, GERD (gastroesophageal reflux disease) Patient Disposition: Home Condition: Stable Instructions: Chest Pain (ED), GERD (Gastroesophageal Reflux Disease) (ED) Additional Instructions: Your symptoms may have been caused by acid reflux and esophageal spasm but you should also be fully evaluated for possible cardiac chest pain. Please return to the emergency department if you develop severe and persistent chest pain, difficulty breathing, dizziness, leg swelling or if you are coughing up blood as these can be signs of a medical emergency. Please call your doctor for a follow up appointment to determine the need for further testing. Patient Language: Persian Prescriptions: New pantoprazole [Protonix] 20 mg tablet,delayed release (DR/EC) 20 mg PO HS 28 Days Qty: 28 0RF No Action nicotine (polacrilex) 4 mg gum 4 mg buccal Q2H Qty: 40 11RF albuterol sulfate [Proventil HFA] 90 mcg/actuation HFA aerosol inhaler 2 puff INHALATION Q6H PRN (Reason: shortness of breath or wheezing) Qty: 18 0RF aspirin [Adult Aspirin Regimen] 81 mg tablet,delayed release (DR/EC) 81 mg PO DAILY Qty: 90 0RF Breztri Aerosphere 160-9-4.8 mcg/actuation HFA aerosol inhaler 2 inh inhalation BID Qty: 10.7 2RF fluoxetine 20 mg Tablet 20 mg PO DAILY magnesium 500 mg Tablet 500 mg PO DAILY ascorbic acid (vitamin C) 500 mg Tablet 500 mg PO DAILY zinc sulfate 220 mg Capsule 220 mg PO DAILY cholecalciferol (vitamin D3) [Vitamin D3] 50 mcg (2,000 unit) Tablet 50 mcg PO DAILY amlodipine 10 mg tablet See Rx Instructions .ROUTE .COMPLEX Qty: 90 0RF Dose Instruction: Take 1 tablet by mouth once daily Rx Instructions: Take 1 tablet by mouth once daily quetiapine 50 mg tablet See Rx Instructions .ROUTE .COMPLEX Qty: 90 2RF Dose Instruction: TAKE 1 TABLET BY MOUTH ONCE DAILY AT BEDTIME Rx Instructions: TAKE 1 TABLET BY MOUTH ONCE DAILY AT BEDTIME tamsulosin 0.4 mg capsule See Rx Instructions .ROUTE .COMPLEX Qty: 90 0RF Dose Instruction: Take 1 capsule by mouth once daily Rx Instructions: Take 1 capsule by mouth once daily lisinopril-hydrochlorothiazide 20-12.5 mg tablet See Rx Instructions .ROUTE .COMPLEX Qty: 90 0RF Dose Instruction: Take 1 tablet by mouth once daily Rx Instructions: Take 1 tablet by mouth once daily atorvastatin [Lipitor] 40 mg tablet 40 mg PO DAILY Qty: 90 0RF metoprolol succinate 25 mg tablet extended release 24 hr See Rx Instructions .ROUTE .COMPLEX Qty: 90 0RF Dose Instruction: Take 1/2 (one-half) tablet by mouth once daily Rx Instructions: Take 1/2 (one-half) tablet by mouth once daily Follow-up/Referrals: Buschling,Roque P., DO [Primary Care Provider, Family Practice] - 2 Days Quality HEART score for chest pain patients History: moderately suspicious ECG: normal Age: > 45 and < 65 years Risk factors: 1 or 2 risk factors Troponin: < or = to 1x normal limit Heart score: 3
[2025-01-25] MEDS: MORPHINE SULFATE (*CRX) 4 MG/ML INJ IV PUSH (10:46)
[2025-01-25 10:49] LABS: Hematocrit 42.7 % (42.0-52.0); Hemoglobin 14.1 g/dL (14.0-18.0); Immature Granulocyte Percent A 0.3 % (0-0.5); Lymphocytes Absolute Auto 3.09 K/mm3 (0.9-3.2); Mean Corpuscular HGB Conc 33.0 g/dl (32-36); Mean Corpuscular Hemoglobin 32.1 pg (26-34); Mean Corpuscular Volume 97.3 fl (80-100); Nucleated Red Blood Cells Absolute Auto 0.000 K/mm3 (0.0-0.012); Nucleated Red Blood Cells Perc 0.0 % (0.0-0.2); Platelet Count Result 234 k/mm3 (150-375); Red Blood Count 4.39 M/mm3 (4.6-6.20); White Blood Count 11.1 K/mm3 (4.5-10.0)
[2025-01-25 11:00] LABS: Alanine Aminotransferase 22 U/L (6-50); Albumin Level 4.1 g/dL (3.5-5.1); Alkaline Phosphatase 68 U/L (38-126); Anion Gap 7 mmol/L (4-12); Aspartate Amino Transferase 35 U/L (17-59); Bilirubin,Total 0.7 mg/dL (0.2-1.3); Blood Urea Nitrogen 13 mg/dL (9-20); Calcium 9.6 mg/dL (8.4-10.2); Carbon Dioxide 26 mmol/L (22-30); Chloride 104 mmol/L (98-107); Estimated CRCL calculation 83 ml/min; Estimated Glomerular Filt Rate > 60; Glucose 101 mg/dL (65-110); Lipase 287 U/L (23-300); Potassium 4.1 mmol/L (3.4-5.0); Sodium 137 mmol/L (137-145); Total Protein 6.9 g/dL (6.3-8.2)
[2025-01-25 11:05] LABS: INR 1.0; Partial Thromboplastin Time 28.0 Seconds (22.3-36.8); Prothrombin Time 13.2 Seconds (11.1-14.7)
[2025-01-25 11:17] LABS: Troponin I < 0.012 ng/mL (0.000-0.034)
--- NOTE | 2025-01-25 13:16 | ECG_ITS ---
Test Date: 2025-01-25 13:47:01 Measurements Intervals [place] Rate: 56 P: 32 FL: 116 QRS: 64 QRSD: 86 T: 41 QT: 470 QTc: 457 Interpretive Statements SINUS BRADYCARDIA WITH SHORT FL INTERVAL BORDERLINE ECG Compared to ECG 01/25/2025 10:40:42 HEART RATE HAS DECREASED Short FL interval now present Electronically Signed On 01-25-2025 13:48:43 CDT by Jaspreet Smyth D.O.
--- OUTSIDE RECORDS SUMMARY | 2025-01-25 13:31 | XMS_ITS | Clinical Summary ---
Author Organization [facility] Address [address] [place] [address] Care Team Providers Care Charge Hand Name Role Phone Roque Epstein DO Primary Care Provider [phone] Source Comments [facility],non-owned Affiliates and Associated Physician Practices is amultiple site organization consisting of ambulatory clinics and hospital sitesin [place], [place], [place] and [place]. This disclosure is being madepursuant to the Care Everywhere program and may not contain all information available regarding this patient. Last updated 18.[facility] [employer]™ Allergies Active Allergy Reactions Criticality Noted Date [...] ns:Chronic rhinitis,Hyper trophy of inferior nasal turbinate [employer] 2 (two) sprays into each nostril 2 times daily 48 g 4 4 Active azelastine (Astelin) 0.1 % nasal sprayIndicatio ns:Chronic rhinitis,Hyper trophy of inferior nasal turbinate [employer] 1 (one) spray to 2 (two) sprays into each nostril 2 times daily Aim tip of spray bottle towards the SAME EYE as the nostril you are spraying in (e.g. 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 Gender Identity Not on file Sexual Orientation Not on file Last Filed Vital Signs Vital Sign Reading Time Taken Comments Blood Pressure 167/103 04/21/2024 8:33 AM SLIMER pt did not take bp meds yet Pulse 83 04/21/2024 8:33 AM SLIMER Temperature 36.3 C (97.3 F) 03/16/2024 4:42 PM SLIMER Respiratory Rate 13 03/16/2024 5:18 PM SLIMER Oxygen Saturation 97% 04/21/2024 8:3 3 AM SLIMER Inhaled Oxygen Concentration - - Weight 92.8 kg (204 lb 9.6 oz) 04/21/2024 8:33 AM SLIMER Height 185.4 cm (6' 1) 04/21/2024 8:33 AM SLIMER Body Mass Index 26.99 04/21/2024 8:33 AM SLIMER Plan of Treatment Health Maintenance Due Date [...] 1981 ZOSTER VACCINE (1 of 2) 2012 SCREENING FOR DIABETES 01/01/2024 DEPRESSION SCREENING 04/22/2024 COVID-19 VACCINE (1 - 2023-2 5 season) 2024 INFLUENZA VACCINE (#1) 2024 02/27/2014 Respiratory Syncytial Virus (RSV) Vaccine Pt: or [...] to complete this topic MENINGOCOCCAL (Group B) VACC INE SHARED DECISION-MAKING Aged Out No longer eligibl e based on patient's age to complete this topic MENINGOCOCCAL GROUPS A/C/Y/W VACCINE Aged Out No longer eligible b ased on patient's age to complete this topic Insurance [facility] SELF PAY NO INSURANCE Member Subscriber Plan / Payer (Ef fective for All Dates) Name:Francisco Kothari Member ID:Not on file Relation to Subscriber:Not on file Name:FRANCISCO KOTHARI Subscriber ID:Not on file Address: [address] [place] [address] Payer ID:Not on file Group ID:Not on file Type:Self Pay Address: [facility] SELF PAY NO INSURANCE Member Subscriber Plan / Payer (Ef fective for All Dates) Name:Francisco Kothari Member ID:Not on file Relation to Subscriber:Not on file Name:FRANCISCO KOTHARI Subscriber ID:Not on file Address: [address] [place] [address] Payer ID:Not on file Group ID:Not on file Type:Self Pay Address: [facility] SELF PAY NO INSURANCE Member Subscriber Plan / Payer (Ef fective for All Dates) Name:Francisco Kothari Member ID:Not on file Relation to Subscriber:Not on file Name:FRANCISCO KOTHARI Subscriber ID:Not on file Address: [address] [place] [address] Payer ID:Not on file Group ID:Not on file Type:Self Pay Address: [facility] Care Teams Charge Hand Relationship Specialty Start Date End Date Roque Epstein DO [address] [place] [address] PCP - General Family Medicine 01/01/24
--- OUTSIDE RECORDS SUMMARY | 2025-01-25 13:31 | XMS_ITS | Clinical Summary ---
Author Organization [facility] [address] [facility] [address] [facility] [address] [place] [address] Care Team Providers Care Maintenance Shop Technician Name Role Phone Roque Epstein DO Primary [...] prior to testing if needed. Must have auto crane driver while taking medication. 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 Address: [address] [address] [facility] Address: [facility] [place] [address] [place] [address] [facility] H[facility]/PP[facility] Address: [address] [address] [place] [address] Care Teams Maintenance Shop Technician Relationship Specialty Start Date End Date Roque Epstein DO [facility] [place] [address] PCP - General Family Medicine 09/05/22
--- OUTSIDE RECORDS SUMMARY | 2025-01-25 13:31 | XMS_ITS | Encounter Summary ---
Author Organization [facility] Address [address] [place] [address] Care Team Providers Care Rn Call Center Name Role Phone Roque Epstein DO Primary Care Provider [phone] Reason for Visit * Reason Onset Date Comments Discuss Surgery 03/04/2024 Encounter Details Date Type Department Care Team (Late st Contact Info) Description 03/04/2024 Telephone [facility] - Centralized Scheduling [address] [place] [address] Ludwin Allen MD [address] [place] [address] Discuss Surgery Social History Tobacco Use Types Packs/Day Years Used Date Smoking Tobacco: Every Day Cigarettes Smokeless Tobacco: Never Alcohol Use Standard Drinks/Week Comments Never 0 (1 standard drink = 0.6 oz pur e alcohol) Sex and Gender Information Value Date Recorded Sex Assigned at Not on file Legal Sex Male 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 Please call back at [phone]. GE ACCOUNT IDENTIFICATION CLERK documented in this encounter Plan of Treatment Not on file documented as of this encounter Visit Diagnoses Not on filedocumented in this encounter Care Teams Rn Call Center Relationship Specialty Start Date End Date Roque Epstein DO [address] [place] [address] PCP - General Family Medicine 01/01/24 documented as of this encounter
--- OUTSIDE RECORDS SUMMARY | 2025-01-25 13:31 | XMS_ITS | Clinical Summary ---
Author Organization [facility] Address [address] [place] [address] Care Team Providers Care Converter Supervisor Name Role Phone None, Provider MD Primary [...] Noted Date Diagnosed Date Lumbar spondylosis 07/14/2024 Social History Tobacco Use Types Packs/Day Years [...] COVID-19 Vaccine ( - 2023-2 5 season) 2024 Influenza Adult (#1) 2025 02/27/2014 RSV Immunization or 60+ Years (1 - [...] Procedure Name Priority Date/Time Associated Diagnosis Comments COLONOSCOPY Routine FOOD AND BEVERAGE INTERN from Last 3 Months or Most Recently Relevant to Health Maintenance Results * Colonoscopy ( FOOD AND BEVERAGE INTERN) Narrative [facility] TO EPIC CONVERSION - FOOD AND BEVERAGE INTERN Documented hx of procedure Procedure Note Jeannie Pineda MD - 02/23/2018 Documented hx of procedure us Generic Conversion Md [facility] PROCEDURE ORDERABLES Final Result [facility] TO EPIC CONVERSION from Last 3 Months or Most Recently Relevant to Health Maintenance Insurance R Care Teams Converter Supervisor Relationship Specialty Start Date End Date None, Provider, PCP - General UNKNOWN PHYSICIAN SPECIALTY 08/12/24
[2025-01-25 13:47] LABS: Troponin I < 0.012 ng/mL (0.000-0.034)
[2025-01-25] MEDS: BELLADONNA ALK/PHENOB ELIX 10 ML, MAG HYDROX/ALUMINUM HYD/SIMETH 30 ML, LIDOCAINE 2% VI... PO (14:07)
== END 2025-01-25 15:53 | disposition home or self-care (01) ==
PROVIDERS: Emergency Provider Emergency Medicine; PCP Family Medicine
DX: R07.9 Chest pain, unspecified (principal); K21.9 Gastro-esophageal reflux disease without esophagitis; I10 Essential (primary) hypertension; J44.9 Chronic obstructive pulmonary disease, unspecified; M17.11 Unilateral primary osteoarthritis, right knee; F32.A Depression, unspecified; F41.9 Anxiety disorder, unspecified; F17.210 Nicotine dependence, cigarettes, uncomplicated; Z79.82 Long term (current) use of aspirin; Z79.899 Other long term (current) drug therapy; R00.1 Bradycardia, unspecified; R94.31 Abnormal electrocardiogram [ECG] [EKG]
CPT/HCPCS: 36415; 71046; 71275; 80053; 83690; 84484; 85025; 85610; 85730; 93005; 96374; 99284; A9270; J2270; Q9967

== ENCOUNTER 2025-02-08 08:13 | Outpatient (CLI) | payer OTHER, SELFPAY ==
--- NOTE | 2025-02-08 08:18 | EST_ITS ---
Patient Info Name: Perez Kothari Age: 64 years : 1960 Gender: Male Ht: 73 in Wt: 188 lbs BSA: 2.10 m2 HR: 57 bpm BP: 153 / 95 mmHg Heart Rhythm: Bradycardia, Sinus Rhythm Technical Quality: Good Exam Date: 02/08/2025 8:18 AM Patient Status: O Admit Date: 02/08/2025 Exam Type: CA stress hayden w NM A regadenoson stress test was performed. Staff Referring Physician: Roque Epstein Attending Provider: Roque Epstein Summary 1. 1. Negative Lexiscan stress test for ischemic ST changes by ECG criteria. 2. 2. Baseline hypertension. 3. 3. Nuclear scan to follow and will be reported separately. Please correlate with it. History/Risk Factors Hypertension: Yes COPD: Not Treated Protocol: LEXISCAN Stress ECG Details Stage: REST Duration (min): 2 min : 1 sec HR (bpm): 58 SBP (mmHg): 153 DBP (mmHg): 95 Stage: REST Duration (min): 3 min : 50 sec HR (bpm): 59 SBP (mmHg): 153 DBP (mmHg): 95 Stage: STAGE 1 Duration (min): 0 min : 24 sec HR (bpm): 56 SBP (mmHg): 153 DBP (mmHg): 95 Stage: RECOVERY Duration (min): 0 min : 35 sec HR (bpm): 71 SBP (mmHg): 153 DBP (mmHg): 95 Stage: RECOVERY Duration (min): 1 min : 35 sec HR (bpm): 84 SBP (mmHg): 153 DBP (mmHg): 95 Stage: RECOVERY Duration (min): 2 min : 35 sec HR (bpm): 77 SBP (mmHg): 142 DBP (mmHg): 91 Stage: RECOVERY Duration (min): 3 min : 35 sec HR (bpm): 74 SBP (mmHg): 151 DBP (mmHg): 93 Stage: RECOVERY Duration (min): 4 min : 35 sec HR (bpm): 70 SBP (mmHg): 151 DBP (mmHg): 93 Stage: RECOVERY Duration (min): 5 min : 35 sec HR (bpm): 72 SBP (mmHg): 149 DBP (mmHg): 93 Stage: RECOVERY Duration (min): 6 min : 35 sec HR (bpm): 67 SBP (mmHg): 154 DBP (mmHg): 93 Stage: RECOVERY Duration (min): 7 min : 35 sec HR (bpm): 63 SBP (mmHg): 157 DBP (mmHg): 100 Stage: RECOVERY Duration (min): 8 min : 35 sec HR (bpm): 63 SBP (mmHg): 157 DBP (mmHg): 100 Stage: RECOVERY Duration (min): 9 min : 35 sec HR (bpm): 65 SBP (mmHg): 157 DBP (mmHg): 102 Stage: RECOVERY Duration (min): 10 min : 35 sec HR (bpm): 59 SBP (mmHg): 156 DBP (mmHg): 98 Stage: RECOVERY Duration (min): 10 min : 41 sec HR (bpm): 59 SBP (mmHg): 156 DBP (mmHg): 98 Rest HR: 59 bpm Peak HR: 84 bpm Rest Sys BP: 153 mmHg Peak Sys BP: 157 mmHg Max Pred HR: 158 bpm % Max Pred HR: 53 % Target HR: 134 bpm Max RPP: 13,188 bpm*mmHg BP Response: Normal blood pressure response Termination Reason: Completed Protocol Cardiac Symptoms: None Total Time: 0 min : 24 sec Rest Benitez BP: 95 mmHg Peak Benitez BP: 102 mmHg Total Dose: 0.4 mg Resting ECG Sinus bradycardia. Stress ECG No abnormal ST/T wave changes. Arrhythmias No arrhythmias were observed during the examination. Report Signatures
--- NOTE | 2025-02-08 13:14 | WPDCARIOSTRE ---
Nuclear Stress Test INDICATIONS Indications: Chest pain PROCEDURE Procedure Performed: Myocardial Perf Spect-Multi Procedure: Patient underwent a lexiscan stress test and immediately was injected wtih 32.3 mCi of cardiolyte. Multiple tomographic images were obtained. These are of goo quality. There is small size, mild inferior perfusion defect with stress imaging. A separate resting images were obtained after patient was injected with 10.6 mCi of cardiolyte. Multiple tomographic images were obtained. These are of goo quality. There is small size, mild inferior perfusion defect with rest imaging. CONCLUSION Conclusion: 1. Myocardial perfusion imaging demonstrates a fixed small inferior perfusion defects. 2. No evidence of reversible ischemia. 3. Left ventriculogram demonstrates normal measured ejection fraction of 54% with no wall motion abnormalities. 4. TID score 1.03 is not elevated.
== END 2025-02-08 08:14 | disposition home or self-care (01) ==
PROVIDERS: PCP Family Medicine; Visit Provider Family Medicine
DX: R07.9 Chest pain, unspecified (principal)
CPT/HCPCS: 78452; 93017; A9502; J0280; J2785